=== PATIENT | female | born 1960 | race Caucasian/White ===

== ENCOUNTER → 2017-02-26 | Outpatient (CLI) | payer MEDICARE, OTHER ==
[~2017-02-26] MED LIST: ALBU8.5H3 INH; AZIT250T89 PO; FOLI200T PO; FURO40TA6 PO; GABA100C8 PO; MAGN400T7 PO; MYCO360T PO; POTA10TA90 PO; PRED1TAB PO; SIRO2TAB PO
== END | disposition home or self-care (01) ==
LOC: CFH 11:30
PROVIDERS: ATTEND Nurse Practitioner Family
DX: I82.621 Acute embolism and thrombosis of deep veins of right upper extremity (principal); I82.B11 Acute embolism and thrombosis of right subclavian vein; I82.A11 Acute embolism and thrombosis of right axillary vein; I12.9 Hypertensive chronic kidney disease with stage 1 through stage 4 chronic kidney disease, or unspecified chronic kidney disease; N18.4 Chronic kidney disease, stage 4 (severe); R25.1 Tremor, unspecified; G25.81 Restless legs syndrome; E83.39 Other disorders of phosphorus metabolism; N39.0 Urinary tract infection, site not specified; E55.9 Vitamin D deficiency, unspecified; E83.52 Hypercalcemia; R53.83 Other fatigue; Z94.0 Kidney transplant status

== ENCOUNTER → 2018-01-21 | Outpatient (CLI) | payer MEDICARE ==
[~2018-01-21] MED LIST changes: -ALBU8.5H3 INH; +ALBU8.5H8 INH; +GABA-826 PO; -GABA100C8 PO; +POTA10TA6 PO; -POTA10TA90 PO
== END | disposition home or self-care (01) ==
LOC: RAD 09:29
DX: M51.26 Other intervertebral disc displacement, lumbar region (principal); M48.07 Spinal stenosis, lumbosacral region; M47.816 Spondylosis without myelopathy or radiculopathy, lumbar region
CPT/HCPCS: 72148

== ENCOUNTER 2018-08-15 14:17 | Inpatient (IN) | payer MEDICARE ==
[~2018-08-15] VITALS: Ht 157.5 cm; Wt 72.0 kg
[~2018-08-15 14:17] MED LIST changes: +BACITRACIN 50,000 UNIT ONE; +BUPIVACAINE 0.25% ONE; +BUPIVACAINE/PF 0.5% ONE; +CEFAZOLIN 1,000 MG ONE; +DEXAMETHASONE 4 MG/ML, 1ML ONE; +EPINEPHRINE 1 MG/ML, 1ML ONE; +FENTANYL PF 250 MCG/5ML ONE; +MIDAZOLAM 1 MG/ML, 2ML ONE; +PROPOFOL 10 MG/ML, 20ML ONE
[2018-08-15] MEDS ORDERED: LACTATED RINGERS 1,000 ML IV SCH (14:49)
[2018-08-15 14:54] VITALS: BP 160/85
[2018-08-15] MEDS ORDERED: ACETAMINOPHEN 500 MG TABLET PO ONE (15:00)
[2018-08-15] MEDS ORDERED: ONDANSETRON ODT 8 MG PO ONE (15:00)
[2018-08-15] MEDS ORDERED: GABAPENTIN 300 MG CAPSULE PO ONE (15:00)
[2018-08-15] MEDS ORDERED: LOSA25TA6 PO (15:36)
[2018-08-15] MEDS ORDERED: CHOL500050 PO (15:36)
[2018-08-15] MEDS ORDERED: PROAIR (15:36)
[2018-08-15] MEDS ORDERED: BUDE10.2 INH (15:36)
[2018-08-15] MEDS ORDERED: TACR1CAP4 PO (15:36)
[2018-08-15] MEDS ORDERED: BUSP7.5T3 PO (15:36)
[2018-08-15] MEDS ORDERED: GABA300C10 PO (15:36)
[2018-08-15] MEDS ORDERED: RIVA20TA PO (15:36)
[2018-08-15] MEDS ORDERED: HYDR-3237 PO (15:38)
[2018-08-15] MEDS ORDERED: ROCURONIUM 10 MG/ML,10ML ONE (16:24)
[2018-08-15] MEDS ORDERED: SUCCINYLCHOLINE 20 MG/ML, 10ML ONE (16:24)
[2018-08-15] MEDS ORDERED: CEFAZOLIN 1,000 MG ONE (16:24)
[2018-08-15] MEDS ORDERED: ALBUTEROL/IPRATROPIUM 2.5MG/0.5MG, 3 ML NPPB PRN (16:30)
[2018-08-15] MEDS ORDERED: PROCHLORPERAZINE 5 MG/ML, 2ML IV PRN (16:30)
[2018-08-15] MEDS ORDERED: LABETALOL 5MG/ML, 20ML IV PRN (16:30)
[2018-08-15] MEDS ORDERED: HYDROmorphone 1 MG/ML, 1ML IV PRN (16:30)
[2018-08-15] MEDS ORDERED: MEPERIDINE/PF 25MG/0.5ML IVPush PRN (16:30)
[2018-08-15] MEDS ORDERED: METOPROLOL 1 MG/ML, 5ML IV PRN (16:30)
[2018-08-15] MEDS ORDERED: MIDAZOLAM 1 MG/ML, 2ML IV PRN (16:30)
[2018-08-15] MEDS ORDERED: LORazepam 2 MG/ML, 1ML IVPush PRN (16:30)
[2018-08-15] MEDS ORDERED: OXYcodone 5 MG/5 ML ORAL.SOL UDC PO PRN (16:30)
[2018-08-15] MEDS ORDERED: hydrALAzine 20 MG/ML, 1ML IV PRN (16:30)
[2018-08-15] MEDS ORDERED: FENTANYL PF 100 MCG/2ML IV PRN (16:30)
[2018-08-15] MEDS ORDERED: FENTANYL PF 100 MCG/2ML ONE (17:06)
[2018-08-15] MEDS ORDERED: BUPIVACAINE/PF-EPI 0.5% 1:200K INFIL ONE (17:15)
[2018-08-15] MEDS ORDERED: BUPIVACAINE LIPOSOME/PF 20ML INFIL ONE (17:17)
[2018-08-15] MEDS ORDERED: OXYcodone 5 MG/5 ML ORAL.SOL UDC ONE (18:41)
[2018-08-15] MEDS ORDERED: PROCHLORPERAZINE 5 MG/ML, 2ML ONE (18:55)
[2018-08-15] MEDS ORDERED: DIPHENHYDRAMINE 50 MG CAPSULE PO PRN (21:30)
[2018-08-15] MEDS ORDERED: OXYcodone/APAP 5/325MG TABLET PO PRN (21:30)
[2018-08-15] MEDS ORDERED: MAGNESIUM HYDROXIDE 8%, 30ML UDC PO PRN (21:30)
[2018-08-15] MEDS ORDERED: PHARMACY MAY ADJ FOR RENAL FX MC PRN (21:30)
[2018-08-15] MEDS ORDERED: PROMETHAZINE 25 MG/ML, 1ML IM PRN (21:30)
[2018-08-15] MEDS ORDERED: ALBUTEROL SULFATE 2.5 MG/3 ML NPPB PRN (21:30)
[2018-08-15] MEDS ORDERED: CYCLOBENZAPRINE 10 MG TABLET PO PRN (21:30)
[2018-08-15] MEDS ORDERED: morphine SULFATE 10 MG/ML, 1ML IV PRN (21:30)
[2018-08-15] MEDS ORDERED: FLUTICASONE/VILANTEROL 100-25MCG/INH INH PRN (21:30)
[2018-08-15] MEDS: D5%-0.9% NACL+KCL 20MEQ 1,000 ML IV SCH (21:30)
[2018-08-15] MEDS ORDERED: BISACODYL 10 MG SUPP PR PRN (21:30)
[2018-08-15] MEDS: TACROLIMUS 1 MG CAPSULE PO SCH (22:59)
[2018-08-15] MEDS: HYDROcodone/APAP 10/325 MG TABLET PO PRN (22:59)
[2018-08-15] MEDS: CEFAZOLIN PMX 1GM/50ML 50 ML IVPB SCH (22:59)
[2018-08-16 01:20] VITALS: BP 138/84
[2018-08-16] MEDS: CEFAZOLIN PMX 1GM/50ML 50 ML IVPB SCH ×3 (02:04→18:20)
[2018-08-16] MEDS: HYDROcodone/APAP 10/325 MG TABLET PO PRN ×3 (04:46→22:44)
[2018-08-16] MEDS: ENOXAPARIN 40 MG/0.4 ML SQ SCH (06:20)
[2018-08-16] MEDS: D5%-0.9% NACL+KCL 20MEQ 1,000 ML IV SCH ×2 (07:30→17:30)
[2018-08-16 07:55] VITALS: BP 170/80
[2018-08-16] MEDS: BUTALB/APAP/CAFFEINE 50MG/325MG/40MG PO PRN ×3 (08:00→16:09)
[2018-08-16] MEDS: LABETALOL 5MG/ML, 20ML IV PRN (08:06)
[2018-08-16] MEDS: FUROSEMIDE 40 MG TABLET PO SCH (09:00)
[2018-08-16] MEDS: BUSPIRONE 5 MG TABLET PO SCH (09:00)
[2018-08-16] MEDS: POTASSIUM CHLORIDE 20 MEQ TAB.ER.PRT PO SCH ×3 (09:28→22:44)
[2018-08-16] MEDS: GABAPENTIN 300 MG CAPSULE PO SCH ×3 (09:28→22:44)
[2018-08-16] MEDS: LOSARTAN 25MG TABLET PO SCH (09:29)
[2018-08-16] MEDS: TACROLIMUS 1 MG CAPSULE PO SCH ×2 (09:29→22:44)
[2018-08-16] MEDS: SENNA/DOCUSATE TABLET PO SCH (09:30)
[2018-08-16] MEDS ORDERED: ACETAMINOPHEN 325 MG TABLET ONE (10:55)
[2018-08-16] MEDS: ACETAMINOPHEN 325 MG TABLET PO PRN (10:57)
[2018-08-16 12:20] VITALS: BP 154/91
[2018-08-16 19:30] VITALS: BP 135/70
[2018-08-16] MEDS: ONDANSETRON 2MG/ML, 2ML IV PRN (20:16)
[2018-08-17 01:30] VITALS: BP 129/68
[2018-08-17] MEDS: CEFAZOLIN PMX 1GM/50ML 50 ML IVPB SCH ×3 (03:17→17:32)
[2018-08-17] MEDS: BUTALB/APAP/CAFFEINE 50MG/325MG/40MG PO PRN (03:27)
[2018-08-17] MEDS: D5%-0.9% NACL+KCL 20MEQ 1,000 ML IV SCH (05:39)
[2018-08-17] MEDS ORDERED: HYDROmorphone 2MG TABLET PO PRN (06:00)
[2018-08-17 07:48] VITALS: BP 128/75
[2018-08-17] MEDS: SENNA/DOCUSATE TABLET PO SCH (09:00)
[2018-08-17] MEDS: FUROSEMIDE 40 MG TABLET PO SCH (09:00)
[2018-08-17] MEDS: LOSARTAN 25MG TABLET PO SCH (09:00)
[2018-08-17] MEDS: POTASSIUM CHLORIDE 20 MEQ TAB.ER.PRT PO SCH ×2 (09:00→21:00)
[2018-08-17] MEDS: GABAPENTIN 300 MG CAPSULE PO SCH ×3 (09:00→21:00)
[2018-08-17] MEDS: BUSPIRONE 5 MG TABLET PO SCH (09:00)
[2018-08-17] MEDS: TACROLIMUS 1 MG CAPSULE PO SCH ×2 (09:30→21:03)
[2018-08-17 09:31] LABS: CREATININE 0.85 mg/dL (0.55-1.02)
[2018-08-17 13:10] LABS: BASOPHILS % (AUTO) 0 % (0-1); EOSINOPHILS % (AUTO) 0 % (1-7); LYMPHOCYTES # (AUTO) 0.73 x10^3/uL (1-3.4); LYMPHOCYTES % (AUTO) 5 % (22-44); MD NO; MEAN CORPUSCULAR HEMOGLOBIN 30.7 pg (27.0-34.8); MEAN CORPUSCULAR HGB CONC 33.4 g/dL (32.4-35.8); MEAN CORPUSCULAR VOLUME 92.1 fL (80-100); MEAN PLATELET VOLUME 8.4 fL (7.4-10.4); MONOCYTES # (AUTO) 1.33 x10^3/uL (0.2-0.8); MONOCYTES % (AUTO) 9 % (2-9); NEUTROPHILS # (AUTO) 13.39 x10^3/uL (1.8-6.8); NEUTROPHILS % (AUTO) 87 % (42-75); PLATELET COUNT 203 x10^3/uL (130-400); RED BLOOD COUNT 4.76 x10^6/uL (3.82-5.3); RED CELL DISTRIBUTION WIDTH 13.8 % (9.6-15.2)
[2018-08-17 13:19] LABS: INTERNATIONAL NORMALIZED RATIO 1.01 (0.93-1.1); PROTHROMBIN TIME 10.5 Seconds (9.6-11.5)
[2018-08-17 13:21] LABS: ALANINE AMINOTRANSFERASE 15 U/L (12-78); ALBUMIN 2.9 g/dL (3.4-5.0); ANION GAP 6 mmol/L (5-15); CALCIUM 8.5 mg/dL (8.5-10.1); CHLORIDE 109 mmol/L (98-107); CREATININE 0.95 mg/dL (0.55-1.02)
[2018-08-17 13:26] LABS: ALKALINE PHOSPHATASE 66 U/L (45-117); BILIRUBIN,TOTAL 0.7 mg/dL (0.2-1.0); TOTAL PROTEIN 6.6 g/dL (6.4-8.2)
[2018-08-17 13:38] LABS: TROPONIN I 0.104 ng/mL (0.000-0.045)
[2018-08-17 13:44] LABS: THYROID STIMULATING HORMONE 0.108 mIU/L (0.358-3.740)
[2018-08-17] MEDS ORDERED: MAGNESIUM SULFATE 4 GM in SODIUM CHLORIDE 0.9% 100 ML IV ONE (14:30)
[2018-08-17] MEDS: LABETALOL 5MG/ML, 20ML IV PRN (16:33)
[2018-08-17] MEDS: ENOXAPARIN 40 MG/0.4 ML SQ SCH (16:53)
[2018-08-17] MEDS: SODIUM CHLORIDE 0.9% 1,000 ML IV SCH (17:42)
[2018-08-17 18:29] LABS: TROPONIN I 0.133 ng/mL (0.000-0.045)
[2018-08-17] MEDS ORDERED: LABETALOL 5MG/ML, 20ML IV PRN (20:30)
[2018-08-17] MEDS: ACETAMINOPHEN 325 MG TABLET PO PRN (20:54)
[2018-08-18 00:45] LABS: BASOPHILS # (AUTO) 0.03 x10^3/uL (0-0.1); BASOPHILS % (AUTO) 0 % (0-1); EOSINOPHILS % (AUTO) 0 % (1-7); LYMPHOCYTES # (AUTO) 0.85 x10^3/uL (1-3.4); LYMPHOCYTES % (AUTO) 6 % (22-44); MD NO; MEAN CORPUSCULAR HEMOGLOBIN 30.9 pg (27.0-34.8); MEAN CORPUSCULAR HGB CONC 33.6 g/dL (32.4-35.8); MEAN CORPUSCULAR VOLUME 91.9 fL (80-100); MEAN PLATELET VOLUME 8.3 fL (7.4-10.4); MONOCYTES # (AUTO) 1.43 x10^3/uL (0.2-0.8); MONOCYTES % (AUTO) 10 % (2-9); NEUTROPHILS # (AUTO) 12.11 x10^3/uL (1.8-6.8); NEUTROPHILS % (AUTO) 84 % (42-75); PLATELET COUNT 194 x10^3/uL (130-400); RED BLOOD COUNT 4.34 x10^6/uL (3.82-5.3); RED CELL DISTRIBUTION WIDTH 13.4 % (9.6-15.2); TROPONIN I 0.155 ng/mL (0.000-0.045)
[2018-08-18] MEDS: HYDROcodone/APAP 10/325 MG TABLET PO PRN ×2 (00:48→12:13)
[2018-08-18 00:49] LABS: ALANINE AMINOTRANSFERASE 13 U/L (12-78); ALBUMIN 2.5 g/dL (3.4-5.0); ANION GAP 11 mmol/L (5-15); CHLORIDE 107 mmol/L (98-107); CREATININE 0.95 mg/dL (0.55-1.02)
[2018-08-18 00:52] LABS: ALKALINE PHOSPHATASE 63 U/L (45-117); BILIRUBIN,TOTAL 0.5 mg/dL (0.2-1.0); TOTAL PROTEIN 6.1 g/dL (6.4-8.2)
[2018-08-18] MEDS: CEFAZOLIN PMX 1GM/50ML 50 ML IVPB SCH ×3 (02:17→17:21)
[2018-08-18] MEDS: SODIUM CHLORIDE 0.9% 1,000 ML IV SCH (03:28)
[2018-08-18] MEDS: ONDANSETRON 2MG/ML, 2ML IV PRN (05:06)
[2018-08-18] MEDS ORDERED: POTASSIUM PHOSPHATE 44 MEQ in SODIUM CHLORIDE 0.9% 500 ML IV ONE (07:30)
[2018-08-18] MEDS: GABAPENTIN 300 MG CAPSULE PO SCH ×3 (08:28→21:41)
[2018-08-18] MEDS: BUSPIRONE 5 MG TABLET PO SCH (08:28)
[2018-08-18] MEDS: SENNA/DOCUSATE TABLET PO SCH (08:28)
[2018-08-18] MEDS: TACROLIMUS 1 MG CAPSULE PO SCH ×2 (08:29→21:41)
[2018-08-18] MEDS: FUROSEMIDE 40 MG TABLET PO SCH (08:29)
[2018-08-18] MEDS: LOSARTAN 25MG TABLET PO SCH (08:30)
[2018-08-18] MEDS: POTASSIUM CHLORIDE 20 MEQ TAB.ER.PRT PO SCH (08:30)
[2018-08-18] MEDS: RIVAROXABAN 20 MG TABLET PO SCH (12:13)
[2018-08-18 13:04] LABS: MICROSCOPIC INDICATED
[2018-08-18 13:06] LABS: CULTURE INDICATED? YES
[2018-08-18 14:40] VITALS: BP 129/83
[2018-08-18 18:59] VITALS: BP 169/108
[2018-08-18] MEDS ORDERED: ACETAMINOPHEN 500 MG TABLET PO ONE (19:30)
[2018-08-18 19:50] VITALS: BP 172/82
[2018-08-18] MEDS ORDERED: POTASSIUM CHLORIDE 20 MEQ TAB.ER.PRT PO SCH (21:00)
[2018-08-18] MEDS ORDERED: HYDROcodone/APAP 10/325 MG TABLET PO PRN ×2 (21:30)
[2018-08-18] MEDS ORDERED: HYDROcodone/APAP 5/325 TABLET ONE (21:34)
[2018-08-18] MEDS: HYDROcodone/APAP 5/325 TABLET PO PRN (21:41)
[2018-08-19] MEDS: CEFAZOLIN PMX 1GM/50ML 50 ML IVPB SCH ×2 (01:37→09:44)
[2018-08-19 02:13] VITALS: BP 133/83
[2018-08-19] MEDS: HYDROcodone/APAP 5/325 TABLET PO PRN ×3 (05:21→15:40)
[2018-08-19 05:28] LABS: BASOPHILS % (AUTO) 0 % (0-1); EOSINOPHILS # (AUTO) 0.01 x10^3/uL (0-0.4); EOSINOPHILS % (AUTO) 0 % (1-7); LYMPHOCYTES # (AUTO) 0.68 x10^3/uL (1-3.4); LYMPHOCYTES % (AUTO) 7 % (22-44); MD NO; MEAN CORPUSCULAR HEMOGLOBIN 30.4 pg (27.0-34.8); MEAN CORPUSCULAR HGB CONC 33.2 g/dL (32.4-35.8); MEAN CORPUSCULAR VOLUME 91.4 fL (80-100); MEAN PLATELET VOLUME 8.6 fL (7.4-10.4); MONOCYTES # (AUTO) 0.89 x10^3/uL (0.2-0.8); MONOCYTES % (AUTO) 10 % (2-9); NEUTROPHILS # (AUTO) 7.62 x10^3/uL (1.8-6.8); NEUTROPHILS % (AUTO) 83 % (42-75); PLATELET COUNT 181 x10^3/uL (130-400); RED BLOOD COUNT 3.93 x10^6/uL (3.82-5.3); RED CELL DISTRIBUTION WIDTH 13.6 % (9.6-15.2)
[2018-08-19 05:42] LABS: ANION GAP 9 mmol/L (5-15); CALCIUM 7.9 mg/dL (8.5-10.1); CHLORIDE 107 mmol/L (98-107); CREATININE 0.89 mg/dL (0.55-1.02)
[2018-08-19 06:53] VITALS: BP 123/74
[2018-08-19] MEDS: LOSARTAN 25MG TABLET PO SCH (09:00)
[2018-08-19] MEDS: BUSPIRONE 5 MG TABLET PO SCH (09:00)
[2018-08-19] MEDS: GABAPENTIN 300 MG CAPSULE PO SCH ×2 (09:44→15:40)
[2018-08-19] MEDS: SENNA/DOCUSATE TABLET PO SCH (09:44)
[2018-08-19] MEDS: TACROLIMUS 1 MG CAPSULE PO SCH (09:45)
[2018-08-19] MEDS ORDERED: MAGNESIUM CITRATE 300ML ORAL SOL PO ONE (10:00)
[2018-08-19] MEDS ORDERED: MAGNESIUM CITRATE 300ML ORAL SOL PO PRN (11:00)
[2018-08-19] MEDS: RIVAROXABAN 20 MG TABLET PO SCH (11:25)
[2018-08-19] MEDS ORDERED: NEUTRA PHOS K 250 MG TABLET PO SCH (13:00)
[2018-08-19 13:32] VITALS: BP 127/75
[2018-08-19] MEDS ORDERED: PINK LADY ENEMA 490 ML BOTTLE PR PRN (15:00)
== END 2018-08-19 17:09 | disposition home or self-care (01) | DRG 518 ==
LOC: OR 14:17 → 4NOR 20:00 → OR 21:57 → ICU 08-17 13:12 → 4NOR 08-18 14:34
PROVIDERS: ADMIT Neurological Surgery; ATTEND Neurological Surgery
PROC: 01NB0ZZ Release Lumbar Nerve, Open Approach (ICD-10-PCS; 2018-08-15)
PROC: 0SB20ZZ Excision of Lumbar Vertebral Disc, Open Approach (ICD-10-PCS; 2018-08-15)
PROC: 00U20KZ Supplement Dura Mater with Nonautologous Tissue Substitute, Open Approach (ICD-10-PCS; 2018-08-15)
PROC: 00NY0ZZ Release Lumbar Spinal Cord, Open Approach (ICD-10-PCS; principal; 2018-08-15 18:00)
PROC: 0T9B70Z Drainage of Bladder with Drainage Device, Via Natural or Artificial Opening (ICD-10-PCS; 2018-08-18)
DX: M51.16 Intervertebral disc disorders with radiculopathy, lumbar region (principal); G92 Toxic encephalopathy; Z94.0 Kidney transplant status; G96.11 Dural tear; M48.061 Spinal stenosis, lumbar region without neurogenic claudication; D72.829 Elevated white blood cell count, unspecified; M21.372 Foot drop, left foot; G62.9 Polyneuropathy, unspecified; E75.21 Fabry (-Anderson) disease; I10 Essential (primary) hypertension; I35.0 Nonrheumatic aortic (valve) stenosis; I70.0 Atherosclerosis of aorta; Z79.01 Long term (current) use of anticoagulants; Z82.49 Family history of ischemic heart disease and other diseases of the circulatory system; Z88.0 Allergy status to penicillin; Z88.2 Allergy status to sulfonamides; Z86.711 Personal history of pulmonary embolism; Z87.440 Personal history of urinary (tract) infections; T40.2X5A Adverse effect of other opioids, initial encounter
CPT/HCPCS: 36415; 36600; 70450; 70551; 71045; 72100; 80048; 80053; 81001; 82565; 82803; 82962; 83735; 84100; 84443; 84484; 85025; 85610; 87040; 87081; 87086; 93005; 93306; C9290; G0378; J0171; J0690; J1100; J1650; J2250; J2405; J2704; J3010; J3475; J3490; J7507; J7512; J7518; Q0162; C1781; J0330; J0780; J3480; J7030; J7040; J7120

== ENCOUNTER 2019-10-22 14:18 | Inpatient (IN) | payer MEDICARE ==
[~2019-10-22] VITALS: Ht 158.8 cm; Wt 69.8 kg
[~2019-10-22 14:18] MED LIST changes: -BACITRACIN 50,000 UNIT ONE; +BUDE10.2 INH; -BUPIVACAINE 0.25% ONE; -BUPIVACAINE/PF 0.5% ONE; +BUSP7.5T3 PO; -CEFAZOLIN 1,000 MG ONE; +CHOL500050 PO; -DEXAMETHASONE 4 MG/ML, 1ML ONE; -EPINEPHRINE 1 MG/ML, 1ML ONE; -FENTANYL PF 250 MCG/5ML ONE; +GABA300C10 PO; +HYDR-3237 PO; +LOSA25TA25 PO; -MAGN400T7 PO; +MAGN400T9 PO; -MIDAZOLAM 1 MG/ML, 2ML ONE; -PRED1TAB PO; +PRED1TAB19 PO; +PROAIR; -PROPOFOL 10 MG/ML, 20ML ONE; +RIVA20TA PO; +TACR1CAP4 PO
[2019-10-22 15:41] LABS: BASOPHILS % (AUTO) 0 % (0-1); EOSINOPHILS # (AUTO) 0.02 x10^3/uL (0-0.4); EOSINOPHILS % (AUTO) 0 % (1-7); LYMPHOCYTES % (AUTO) 9 % (22-44); MD NO; MEAN CORPUSCULAR HEMOGLOBIN 30.4 pg (27.0-34.8); MEAN CORPUSCULAR HGB CONC 31.8 g/dL (32.4-35.8); MEAN CORPUSCULAR VOLUME 95.6 fL (80-100); MEAN PLATELET VOLUME 8.5 fL (7.4-10.4); MONOCYTES # (AUTO) 0.44 x10^3/uL (0.2-0.8); MONOCYTES % (AUTO) 9 % (2-9); NEUTROPHILS # (AUTO) 3.87 x10^3/uL (1.8-6.8); NEUTROPHILS % (AUTO) 82 % (42-75); PLATELET COUNT 249 x10^3/uL (130-400); RED BLOOD COUNT 3.74 x10^6/uL (3.82-5.3); RED CELL DISTRIBUTION WIDTH 14.1 % (9.6-15.2)
[2019-10-22 15:43] LABS: ALBUMIN 3.1 g/dL (3.4-5.0); ANION GAP 6 mmol/L (5-15); CALCIUM 8.2 mg/dL (8.5-10.1); CHLORIDE 112 mmol/L (98-107); CREATININE 1.63 mg/dL (0.55-1.02)
--- NOTE | 2019-10-22 18:30 | NUR ---
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 PATIENT SENT FROM [facility]. PATIENTS RESPIRATIONS ARE EVEN AND UNLABORED. PATIENT IS IN NO ACUTE DISTRESS. VS STABLE. PATIENT IS RESTING ON GURNEY BEING EVALUATED BY ED PROVIDER. FAMILY AT BEDSIDE.
--- NOTE | 2019-10-22 18:56 | NUR ---
PATIENT AMBULATED TO THE BATHROOM WITH A STEADY GAIT. URINE COLLECTED.
[2019-10-22] MEDS ORDERED: FUROSEMIDE 40 MG/4 ML IV ONE (19:30)
[2019-10-22] MEDS ORDERED: METO25TA91 PO (19:33)
[2019-10-22] MEDS ORDERED: HYDR-3342 PO (19:33)
--- NOTE | 2019-10-22 19:33 | NUR ---
REPORT RECEIVED DOROTEO CHRISTIANSEN.
[2019-10-22] MEDS ORDERED: FUROSEMIDE 40 MG/4 ML ONE (19:36)
--- NOTE | 2019-10-22 19:43 | NUR ---
US COMPLETE. LASIX PER DEC. BEDSIDE COMMODE SET UP. NO COMPLAINTS AT THIS TIME. VSS, BP STABLE. CALL WILEY IN REACH.
[2019-10-22 19:49] LABS: MICROSCOPIC INDICATED
--- NOTE | 2019-10-22 20:10 | NUR ---
PLAN FOR NEPH CONSULT/ADMIT.
[2019-10-22 20:17] LABS: CULTURE INDICATED? NO
--- NOTE | 2019-10-22 21:03 | NUR ---
PER DR ZAMORA PT MAY TAKE HER HOME MEDS THAT SHE BROUGHT WITH HER. VSS. CALL INEZ IN REACH.
--- NOTE | 2019-10-22 21:15 | NUR ---
REPORT TO FLOYD CHRISTIANSEN.
[2019-10-22] MEDS ORDERED: POLYETHYLENE GLYCOL 17 GM PACKET PO PRN (21:30)
[2019-10-22] MEDS ORDERED: morphine SULFATE 10 MG/ML, 1ML IVPush PRN (21:30)
[2019-10-22] MEDS ORDERED: OXYcodone IR 5MG TABLET PO PRN (21:30)
[2019-10-22] MEDS ORDERED: BISACODYL 10 MG SUPP PR PRN (21:30)
[2019-10-22] MEDS ORDERED: ONDANSETRON 2MG/ML, 2ML IVPush PRN (21:30)
[2019-10-22] MEDS ORDERED: ONDANSETRON ODT 4 MG PO PRN (21:30)
[2019-10-22] MEDS ORDERED: DOCUSATE 100 MG CAPSULE PO PRN (21:30)
[2019-10-22] MEDS ORDERED: hydrALAzine 20 MG/ML, 1ML IVPush PRN (21:30)
[2019-10-22] MEDS ORDERED: ACETAMINOPHEN 325 MG TABLET PO PRN (21:30)
[2019-10-22] MEDS ORDERED: PROMETHAZINE 25 MG/ML, 1ML IM PRN (21:30)
[2019-10-22] MEDS ORDERED: TEMPLATE NON-FORMULARY MED. (Albuterol Sulfate (Proair Hfa) 2 PUFF(S)) INH PRN (21:30)
[2019-10-22] MEDS: GABAPENTIN 300 MG CAPSULE PO SCH (21:30)
[2019-10-22] MEDS: TACROLIMUS 1 MG CAPSULE PO SCH (21:30)
[2019-10-22] MEDS: mycophenOLATE SODIUM 360MG DR PO SCH (21:30)
[2019-10-22 21:38] VITALS: BP 159/101
[2019-10-22 21:40] LABS: TROPONIN I 0.093 ng/mL (0.000-0.045)
[2019-10-22] MEDS ORDERED: ALBUTEROL SULFATE 2.5 MG/3 ML HHN PRN (22:00)
[2019-10-22] MEDS ORDERED: ALBUTEROL SULFATE 2.5 MG/3 ML HHN SCH (22:00)
[2019-10-22 22:07] LABS: FREE T4 (FREE THYROXINE) 0.98 ng/dL (0.76-1.46)
[2019-10-23 02:10] VITALS: BP 121/75
[2019-10-23 06:22] LABS: BASOPHILS # (AUTO) 0.02 x10^3/uL (0-0.1); BASOPHILS % (AUTO) 1 % (0-1); EOSINOPHILS # (AUTO) 0.12 x10^3/uL (0-0.4); EOSINOPHILS % (AUTO) 3 % (1-7); LYMPHOCYTES # (AUTO) 0.69 x10^3/uL (1-3.4); LYMPHOCYTES % (AUTO) 16 % (22-44); MD NO; MEAN CORPUSCULAR HEMOGLOBIN 31.3 pg (27.0-34.8); MEAN CORPUSCULAR HGB CONC 33.2 g/dL (32.4-35.8); MEAN CORPUSCULAR VOLUME 94.3 fL (80-100); MEAN PLATELET VOLUME 8.2 fL (7.4-10.4); MONOCYTES # (AUTO) 0.76 x10^3/uL (0.2-0.8); MONOCYTES % (AUTO) 18 % (2-9); NEUTROPHILS # (AUTO) 2.72 x10^3/uL (1.8-6.8); NEUTROPHILS % (AUTO) 63 % (42-75); PLATELET COUNT 256 x10^3/uL (130-400); RED BLOOD COUNT 3.51 x10^6/uL (3.82-5.3); RED CELL DISTRIBUTION WIDTH 13.9 % (9.6-15.2)
[2019-10-23 06:33] LABS: ALANINE AMINOTRANSFERASE 16 U/L (12-78); ALBUMIN 2.8 g/dL (3.4-5.0); ANION GAP 4 mmol/L (5-15); CHLORIDE 114 mmol/L (98-107)
[2019-10-23 06:36] LABS: ALKALINE PHOSPHATASE 51 U/L (45-117); BILIRUBIN,TOTAL 0.4 mg/dL (0.2-1.0); CHOL/HDL RATIO 2.9; CHOLESTEROL, TOTAL 165 mg/dL (140-239); CREATININE 1.47 mg/dL (0.55-1.02); HDL CHOL % 34 % (28-40); HDL CHOLESTEROL (DIRECT) 56 mg/dL (40-60); LDL CHOLESTEROL,CALCULATED 76 mg/dL (54-169); LDL/HDL RATIO 1.4 (0.5-3.0); TOTAL PROTEIN 5.4 g/dL (6.4-8.2); TRIGLYCERIDES 166 mg/dL (50-200); VLDL CHOLESTEROL 33 mg/dL (0-25)
[2019-10-23] MEDS ORDERED: FUROSEMIDE 40 MG/4 ML IV SCH (07:30)
[2019-10-23 07:50] VITALS: BP 144/78
[2019-10-23 08:40] LABS: INTERNATIONAL NORMALIZED RATIO 0.97 (0.93-1.1); PROTHROMBIN TIME 10.2 Seconds (9.6-11.5)
[2019-10-23] MEDS: MAGNESIUM OXIDE 400 MG TABLET PO SCH ×2 (09:55→20:53)
[2019-10-23] MEDS: GABAPENTIN 300 MG CAPSULE PO SCH ×3 (09:55→20:53)
[2019-10-23] MEDS: mycophenOLATE SODIUM 360MG DR PO SCH ×2 (09:55→20:54)
[2019-10-23] MEDS: TACROLIMUS 1 MG CAPSULE PO SCH ×2 (09:55→20:53)
[2019-10-23] MEDS: METOPROLOL SUCCINATE 25 MG TAB.ER.24H PO SCH (09:55)
[2019-10-23] MEDS: BUSPIRONE 5 MG TABLET PO SCH (09:56)
[2019-10-23] MEDS ORDERED: FENTANYL PF 100 MCG/2ML ONE ×2 (11:16→11:17)
[2019-10-23] MEDS ORDERED: MIDAZOLAM 1 MG/ML, 5ML ONE ×2 (11:17)
[2019-10-23] MEDS ORDERED: FLUMAZENIL 0.1 MG/1 ML, 5ML ONE (11:17)
[2019-10-23] MEDS ORDERED: NALOXONE 1 MG/ML, 2ML ONE (11:17)
[2019-10-23 13:55] VITALS: BP 151/88
[2019-10-23 16:23] LABS: TROPONIN I 0.074 ng/mL (0.000-0.045)
[2019-10-23] MEDS ORDERED: FUROSEMIDE 40 MG TABLET PO SCH (17:00)
[2019-10-23 20:10] VITALS: BP 160/81
[2019-10-24 02:29] VITALS: BP 152/72
[2019-10-24 03:21] LABS: CREATININE,URINE RANDOM 39.7 mg/dL
[2019-10-24 04:48] LABS: BASOPHILS % (AUTO) 0 % (0-1); EOSINOPHILS # (AUTO) 0.06 x10^3/uL (0-0.4); EOSINOPHILS % (AUTO) 1 % (1-7); LYMPHOCYTES # (AUTO) 0.56 x10^3/uL (1-3.4); LYMPHOCYTES % (AUTO) 8 % (22-44); MD NO; MEAN CORPUSCULAR HEMOGLOBIN 30.8 pg (27.0-34.8); MEAN CORPUSCULAR HGB CONC 32.6 g/dL (32.4-35.8); MEAN CORPUSCULAR VOLUME 94.4 fL (80-100); MEAN PLATELET VOLUME 8.4 fL (7.4-10.4); MONOCYTES # (AUTO) 0.89 x10^3/uL (0.2-0.8); MONOCYTES % (AUTO) 13 % (2-9); NEUTROPHILS # (AUTO) 5.17 x10^3/uL (1.8-6.8); NEUTROPHILS % (AUTO) 77 % (42-75); PLATELET COUNT 254 x10^3/uL (130-400); RED BLOOD COUNT 3.74 x10^6/uL (3.82-5.3); RED CELL DISTRIBUTION WIDTH 13.9 % (9.6-15.2)
[2019-10-24 04:51] LABS: ALBUMIN 2.7 g/dL (3.4-5.0); ANION GAP 5 mmol/L (5-15); CALCIUM 7.7 mg/dL (8.5-10.1); CHLORIDE 114 mmol/L (98-107); CREATININE 1.61 mg/dL (0.55-1.02)
[2019-10-24 08:03] VITALS: BP 145/86
[2019-10-24] MEDS: mycophenOLATE SODIUM 360MG DR PO SCH ×2 (09:00→21:50)
[2019-10-24] MEDS: GABAPENTIN 300 MG CAPSULE PO SCH ×3 (09:34→21:50)
[2019-10-24] MEDS: TACROLIMUS 1 MG CAPSULE PO SCH ×2 (09:34→21:49)
[2019-10-24] MEDS: MAGNESIUM OXIDE 400 MG TABLET PO SCH ×2 (09:34→21:00)
[2019-10-24] MEDS: METOPROLOL SUCCINATE 25 MG TAB.ER.24H PO SCH (09:35)
[2019-10-24] MEDS: BUSPIRONE 5 MG TABLET PO SCH (09:35)
[2019-10-24 13:45] VITALS: BP 141/80
[2019-10-24] MEDS ORDERED: PRED5TAB PO ×2 (14:29)
[2019-10-24] MEDS ORDERED: TACR1CAP4 PO ×2 (14:29)
[2019-10-24] MEDS ORDERED: MYCO360T PO (14:31)
[2019-10-24 19:56] VITALS: BP 164/84
[2019-10-25 02:08] VITALS: BP 133/76
[2019-10-25 05:37] LABS: ANION GAP 9 mmol/L (5-15); CALCIUM 8.3 mg/dL (8.5-10.1); CHLORIDE 112 mmol/L (98-107); CREATININE 1.93 mg/dL (0.55-1.02)
[2019-10-25 07:07] VITALS: BP 170/95
[2019-10-25] MEDS ORDERED: FUROSEMIDE 40 MG TABLET PO SCH (09:00)
[2019-10-25] MEDS: mycophenOLATE SODIUM 360MG DR PO SCH (09:00)
[2019-10-25] MEDS: TACROLIMUS 1 MG CAPSULE PO SCH (09:07)
[2019-10-25] MEDS: MAGNESIUM OXIDE 400 MG TABLET PO SCH (09:08)
[2019-10-25] MEDS: BUSPIRONE 5 MG TABLET PO SCH (09:08)
[2019-10-25] MEDS: METOPROLOL SUCCINATE 25 MG TAB.ER.24H PO SCH (09:08)
[2019-10-25] MEDS: GABAPENTIN 300 MG CAPSULE PO SCH (09:09)
[2019-10-25 09:11] VITALS: BP 159/88
[2019-10-25] MEDS ORDERED: PRED20TA PO (11:38)
== END 2019-10-25 15:10 | disposition home or self-care (01) | DRG 698 ==
LOC: ED 19:13 → EDIP 20:27 → 3N 21:28
PROVIDERS: ADMIT Internal Medicine; ATTEND Internal Medicine
PROC: 0TB03ZX Excision of Right Kidney, Percutaneous Approach, Diagnostic (ICD-10-PCS; principal; 2019-10-23)
DX: T86.11 Kidney transplant rejection (principal); I50.33 Acute on chronic diastolic (congestive) heart failure; J98.11 Atelectasis; I13.0 Hypertensive heart and chronic kidney disease with heart failure and stage 1 through stage 4 chronic kidney disease, or unspecified chronic kidney disease; N17.9 Acute kidney failure, unspecified; T86.19 Other complication of kidney transplant; D64.9 Anemia, unspecified; E75.21 Fabry (-Anderson) disease; N18.3 Chronic kidney disease, stage 3 (moderate); J45.909 Unspecified asthma, uncomplicated; I35.0 Nonrheumatic aortic (valve) stenosis; Y83.0 Surgical operation with transplant of whole organ as the cause of abnormal reaction of the patient, or of later complication, without mention of misadventure at the time of the procedure; Z86.711 Personal history of pulmonary embolism; Z82.49 Family history of ischemic heart disease and other diseases of the circulatory system; Z86.718 Personal history of other venous thrombosis and embolism; Z88.0 Allergy status to penicillin; Z88.2 Allergy status to sulfonamides; Z88.5 Allergy status to narcotic agent; Z79.899 Other long term (current) drug therapy
CPT/HCPCS: 36415; 50200; 71045; 71250; 76770; 77012; 80048; 80053; 80061; 80069; 81001; 82040; 82570; 83036; 83735; 83880; 84156; 84439; 84443; 84484; 85025; 85610; 88300; 93005; 93306; 96374; 99156; 99157; 99285; G0378; J1940; J2250; J2930; J3010; J7507; J7512; J7518; J2310

== ENCOUNTER 2019-11-10 11:30 | Day surgery (SDC) | payer MEDICARE ==
[~2019-11-10] VITALS: Ht 157.5 cm; Wt 65.9 kg
[~2019-11-10 11:30] MED LIST changes: +HYDR-3342 PO; +METO25TA91 PO; +PRED20TA PO; +PRED5TAB PO
[2019-11-10] MEDS ORDERED: SODIUM CHLORIDE 0.9% 1,000 ML IV SCH ×2 (12:12→13:55)
[2019-11-10 12:14] VITALS: BP 167/104
[2019-11-10] MEDS ORDERED: GABA-827 PO (12:37)
[2019-11-10] MEDS ORDERED: PRED20TA PO (12:37)
[2019-11-10] MEDS ORDERED: GABA-826 PO (12:37)
[2019-11-10 12:53] LABS: MEAN CORPUSCULAR HEMOGLOBIN 30.8 pg (27.0-34.8); MEAN CORPUSCULAR HGB CONC 32.3 g/dL (32.4-35.8); MEAN CORPUSCULAR VOLUME 95.3 fL (80-100); MEAN PLATELET VOLUME 8.5 fL (7.4-10.4); PLATELET COUNT 210 x10^3/uL (130-400); RED BLOOD COUNT 3.63 x10^6/uL (3.82-5.3); RED CELL DISTRIBUTION WIDTH 14.3 % (9.6-15.2)
[2019-11-10 13:03] LABS: INTERNATIONAL NORMALIZED RATIO 0.97 (0.93-1.1); PROTHROMBIN TIME 10.3 Seconds (9.6-11.5)
[2019-11-10 13:06] LABS: ANION GAP 8 mmol/L (5-15); CALCIUM 8.6 mg/dL (8.5-10.1); CHLORIDE 113 mmol/L (98-107); CREATININE 1.85 mg/dL (0.55-1.02)
[2019-11-10 13:12] LABS: BASOPHILS % (AUTO) 0 % (0-1); EOSINOPHILS % (AUTO) 0 % (1-7); LYMPHOCYTES # (AUTO) 0.23 x10^3/uL (1-3.4); LYMPHOCYTES % (AUTO) 3 % (22-44); MD SCAN; MONOCYTES % (AUTO) 2 % (2-9); NEUTROPHILS # (AUTO) 6.54 x10^3/uL (1.8-6.8); NEUTROPHILS % (AUTO) 95 % (42-75)
[2019-11-10] MEDS ORDERED: FENTANYL PF 100 MCG/2ML ONE (13:14)
[2019-11-10] MEDS ORDERED: MIDAZOLAM 1 MG/ML, 5ML ONE (13:14)
[2019-11-10] MEDS ORDERED: VERAPAMIL 2.5 MG/ML, 2ML ONE (13:14)
[2019-11-10] MEDS ORDERED: BIVALIRUDIN 250 MG ONE (13:14)
[2019-11-10] MEDS ORDERED: HEPARIN 1,000 UNITS/ML, 10ML ONE (13:14)
[2019-11-10] MEDS ORDERED: TICAGRELOR 90 MG TABLET ONE (13:14)
== END 2019-11-10 15:55 | disposition home or self-care (01) ==
LOC: CACL 11:30
PROVIDERS: ATTEND Internal Medicine Cardiovascular Disease
DX: I35.0 Nonrheumatic aortic (valve) stenosis (principal); I25.10 Atherosclerotic heart disease of native coronary artery without angina pectoris; I10 Essential (primary) hypertension; Z88.1 Allergy status to other antibiotic agents; Z88.0 Allergy status to penicillin; Z88.8 Allergy status to other drugs, medicaments and biological substances; Z98.890 Other specified postprocedural states
CPT/HCPCS: 36415; 80048; 85025; 85610; 93454; 99156; C1769; C1894; J0583; J1644; J2250; J3010; Q9967

== ENCOUNTER → 2019-11-17 | Outpatient (CLI) | payer MEDICARE ==
[~2019-11-17] MED LIST changes: +GABA-827 PO
== END | disposition home or self-care (01) ==
LOC: CVU 11:19
PROVIDERS: ATTEND Internal Medicine Cardiovascular Disease
DX: I35.0 Nonrheumatic aortic (valve) stenosis (principal); I65.23 Occlusion and stenosis of bilateral carotid arteries; M47.816 Spondylosis without myelopathy or radiculopathy, lumbar region; M51.36 Other intervertebral disc degeneration, lumbar region; I25.10 Atherosclerotic heart disease of native coronary artery without angina pectoris; J90 Pleural effusion, not elsewhere classified; N17.9 Acute kidney failure, unspecified; D64.9 Anemia, unspecified; E75.21 Fabry (-Anderson) disease; I10 Essential (primary) hypertension; K57.30 Diverticulosis of large intestine without perforation or abscess without bleeding; Z98.890 Other specified postprocedural states
CPT/HCPCS: 71250; 74176; 93880; 94060; 94726; 94729

== ENCOUNTER 2019-11-27 23:24 | Inpatient (IN) | payer MEDICARE ==
[~2019-11-27] VITALS: Ht 158.8 cm; Wt 62.8 kg
[~2019-11-27 23:24] MED LIST changes: +ACET325T26 PO; +ALBU18HF INH; +CLOP75TA PO; +FURO20TA3 PO
--- NOTE | 2019-11-27 23:55 | NUR ---
Arrived to room via squad, vs obtained, ekg completed, provider @ bedside, pt A&Ox3, speech clear, skin pwd, lab @ bedside for blood draw, med rec completed
[2019-11-28 00:09] LABS: ALBUMIN 2.7 g/dL (3.4-5.0); ANION GAP 8 mmol/L (5-15); CALCIUM 8.1 mg/dL (8.5-10.1); CHLORIDE 111 mmol/L (98-107); CREATININE 1.86 mg/dL (0.55-1.02)
[2019-11-28 00:17] LABS: TROPONIN I 0.232 ng/mL (0.000-0.045)
--- NOTE | 2019-11-28 01:01 | NUR ---
oxygen sat 92% on room air, states "feels like something sitting on chest" pt placed on 2l O2 via nc, resting in bed with daughter, hob adjusted for comfort
[2019-11-28] MEDS ORDERED: NITROGLYCERIN SINGLE TAB 0.4 MG SL ONE (01:21)
[2019-11-28] MEDS: NITROGLYCERIN SINGLE TAB 0.4 MG SL PRN ×2 (01:23→01:36)
--- NOTE | 2019-11-28 01:37 | NUR ---
repeat b/p 171/98, pain level 4 after nitro, 2nd sl tab given
[2019-11-28] MEDS ORDERED: HYDROcodone/APAP 5/325 TABLET ONE (01:45)
--- NOTE | 2019-11-28 01:53 | NUR ---
b/p recheck 161/88 after 2nd nitro tab, currently rates pain 3/10, medicated with norco per orders for further pain relief, water given, pt tolerates well
[2019-11-28] MEDS ORDERED: HYDROcodone/APAP 5/325 TABLET PO ONE (02:00)
--- NOTE | 2019-11-28 02:01 | NUR ---
REPORT RECEIVED FROM KULDIP AVENDAÑO.
--- NOTE | 2019-11-28 02:02 | NUR ---
Report given to [place] CHRISTIANSEN
[2019-11-28] MEDS ORDERED: ENOXAPARIN 60 MG/0.6 ML SQ ONE ×2 (02:30)
[2019-11-28] MEDS ORDERED: morphine SULFATE 10 MG/ML, 1ML IVPush PRN (03:30)
[2019-11-28] MEDS ORDERED: ONDANSETRON ODT 4 MG PO PRN (03:30)
[2019-11-28] MEDS ORDERED: BISACODYL 10 MG SUPP PR PRN (03:30)
[2019-11-28] MEDS ORDERED: POLYETHYLENE GLYCOL 17 GM PACKET PO PRN (03:30)
[2019-11-28] MEDS ORDERED: HYDROcodone/APAP 5/325 TABLET PO PRN (03:30)
[2019-11-28] MEDS ORDERED: BUSPIRONE 5 MG TABLET PO PRN (03:30)
[2019-11-28] MEDS: GABAPENTIN 300 MG CAPSULE PO SCH ×4 (03:30→21:00)
[2019-11-28] MEDS ORDERED: DOCUSATE 100 MG CAPSULE PO PRN (03:30)
[2019-11-28] MEDS ORDERED: ACETAMINOPHEN 325 MG TABLET PO PRN (03:30)
[2019-11-28] MEDS ORDERED: PROMETHAZINE 25 MG/ML, 1ML IM PRN (03:30)
[2019-11-28] MEDS ORDERED: hydrALAzine 20 MG/ML, 1ML IVPush PRN (03:30)
[2019-11-28 03:56] LABS: FREE T4 (FREE THYROXINE) 1.12 ng/dL (0.76-1.46)
[2019-11-28 07:41] LABS: TROPONIN I 0.192 ng/mL (0.000-0.045)
[2019-11-28 08:00] VITALS: BP 178/111
[2019-11-28] MEDS: CLOPIDOGREL 75 MG TABLET PO SCH (08:47)
[2019-11-28] MEDS: MAGNESIUM OXIDE 400 MG TABLET PO SCH (08:50)
[2019-11-28] MEDS: MULTIVITAMIN 1 TABLET PO SCH (08:51)
[2019-11-28] MEDS: METOPROLOL SUCCINATE 25 MG TAB.ER.24H PO SCH (08:51)
[2019-11-28] MEDS ORDERED: LOSARTAN 25MG TABLET PO SCH (09:00)
[2019-11-28] MEDS ORDERED: FUROSEMIDE 40 MG TABLET PO SCH (09:00)
[2019-11-28] MEDS: TACROLIMUS 1 MG CAPSULE PO SCH ×2 (11:08→21:39)
[2019-11-28] MEDS: mycophenOLATE SODIUM 360MG DR PO SCH ×2 (11:08→21:40)
[2019-11-28] MEDS: SODIUM CHLORIDE 0.9% 1,000 ML IV SCH (11:42)
[2019-11-28] MEDS: TEMPLATE NON-FORMULARY MED. (Albuterol Sulfate (Ventolin Hfa) 2 PUFFS) INH SCH (11:43)
[2019-11-28 12:05] LABS: % IRON SATURATION 21 % (20-55); IRON LEVEL 43 mcg/dL (50-170); TOTAL IRON BINDING CAPACITY 205 mcg/dL (250-450); TROPONIN I 0.183 ng/mL (0.000-0.045)
[2019-11-28 12:25] LABS: ABSOLUTE RETICS # 0.059 x10^6/uL (0.5-2.5); RED BLOOD COUNT 3.69 x10^6/uL (3.82-5.3); RETICULOCYTE COUNT % 1.59 % (0.5-1.5)
[2019-11-28 12:28] LABS: CALCIUM 8.1 mg/dL (8.5-10.1)
[2019-11-28] MEDS ORDERED: HEPARIN 5,000 UNITS/ML, 1ML IV PRN (13:00)
[2019-11-28] MEDS ORDERED: HEPARIN 5,000 UNITS/ML, 1ML SQ SCH (13:00)
[2019-11-28] MEDS ORDERED: HEPARIN 25,000 UNITS/250ML PMX 250 ML IV PRN (13:00)
[2019-11-28] MEDS ORDERED: HEPARIN 5,000 UNITS/ML, 1ML IV ONE (13:00)
[2019-11-28] MEDS: PANTOPRAZOLE 40 MG IV IVPush SCH (14:53)
[2019-11-28 15:25] VITALS: BP 194/80
[2019-11-28] MEDS: INSULIN LISPRO 100 UNITS/ML, PEN SQ-INSULIN SCH ×2 (16:00→21:00)
[2019-11-28 21:34] VITALS: BP 178/106
[2019-11-28] MEDS: GABAPENTIN 400 MG CAPSULE PO SCH (21:40)
[2019-11-29] MEDS: PANTOPRAZOLE 40 MG IV IVPush SCH (01:13)
[2019-11-29 02:41] VITALS: BP 153/86
[2019-11-29 03:29] LABS: BASOPHILS % (AUTO) 0 % (0-1); EOSINOPHILS # (AUTO) 0.06 x10^3/uL (0-0.4); EOSINOPHILS % (AUTO) 1 % (1-7); LYMPHOCYTES # (AUTO) 0.22 x10^3/uL (1-3.4); LYMPHOCYTES % (AUTO) 3 % (22-44); MD NO; MEAN CORPUSCULAR HEMOGLOBIN 31.7 pg (27.0-34.8); MEAN CORPUSCULAR HGB CONC 33.5 g/dL (32.4-35.8); MEAN CORPUSCULAR VOLUME 94.7 fL (80-100); MEAN PLATELET VOLUME 8.8 fL (7.4-10.4); MONOCYTES # (AUTO) 0.36 x10^3/uL (0.2-0.8); MONOCYTES % (AUTO) 5 % (2-9); NEUTROPHILS # (AUTO) 6.37 x10^3/uL (1.8-6.8); NEUTROPHILS % (AUTO) 91 % (42-75); PLATELET COUNT 119 x10^3/uL (130-400); RED BLOOD COUNT 3.52 x10^6/uL (3.82-5.3); RED CELL DISTRIBUTION WIDTH 15.1 % (9.6-15.2)
[2019-11-29 03:38] LABS: ALANINE AMINOTRANSFERASE 37 U/L (12-78); ALBUMIN 2.7 g/dL (3.4-5.0); ANION GAP 9 mmol/L (5-15); CALCIUM 8.1 mg/dL (8.5-10.1); CHLORIDE 109 mmol/L (98-107); CREATININE 2.12 mg/dL (0.55-1.02)
[2019-11-29 03:41] LABS: ALKALINE PHOSPHATASE 79 U/L (45-117); BILIRUBIN,TOTAL 0.4 mg/dL (0.2-1.0); CHOLESTEROL, TOTAL 195 mg/dL (140-239); HDL CHOL % 50 % (28-40); HDL CHOLESTEROL (DIRECT) 97 mg/dL (40-60); LDL CHOLESTEROL,CALCULATED 52 mg/dL (54-169); LDL/HDL RATIO 0.5 (0.5-3.0); TOTAL PROTEIN 5.5 g/dL (6.4-8.2); TRIGLYCERIDES 232 mg/dL (50-200); VLDL CHOLESTEROL 46 mg/dL (0-25)
[2019-11-29 07:59] VITALS: BP 161/93
[2019-11-29] MEDS: TEMPLATE NON-FORMULARY MED. (Albuterol Sulfate (Ventolin Hfa) 2 PUFFS) INH SCH (09:00)
[2019-11-29] MEDS: INSULIN LISPRO 100 UNITS/ML, PEN SQ-INSULIN SCH ×4 (09:06→22:34)
[2019-11-29] MEDS: mycophenOLATE SODIUM 360MG DR PO SCH ×2 (09:07→22:32)
[2019-11-29] MEDS: TACROLIMUS 1 MG CAPSULE PO SCH ×2 (09:08→22:30)
[2019-11-29] MEDS: GABAPENTIN 300 MG CAPSULE PO SCH ×3 (09:09→21:00)
[2019-11-29] MEDS: CLOPIDOGREL 75 MG TABLET PO SCH (09:09)
[2019-11-29] MEDS: METOPROLOL SUCCINATE 25 MG TAB.ER.24H PO SCH (09:10)
[2019-11-29] MEDS: SODIUM CHLORIDE 0.9% 1,000 ML IV SCH (09:20)
[2019-11-29] MEDS: MAGNESIUM OXIDE 400 MG TABLET PO SCH (11:14)
[2019-11-29] MEDS: MULTIVITAMIN 1 TABLET PO SCH (11:16)
[2019-11-29] MEDS: ACETAMINOPHEN 325 MG TABLET PO PRN ×2 (11:17→22:31)
[2019-11-29] MEDS ORDERED: FLUCONAZOLE 200 MG TABLET PO ONE (12:00)
[2019-11-29 13:06] LABS: MICROSCOPIC INDICATED
[2019-11-29] MEDS: NYSTATIN 500,000 UNITS/5 ML UDC PO SCH ×3 (13:30→22:30)
[2019-11-29] MEDS: APIXABAN 5 MG TABLET PO SCH ×2 (13:31→22:32)
[2019-11-29 13:44] VITALS: BP 182/94
[2019-11-29 15:13] VITALS: BP 185/96
[2019-11-29] MEDS ORDERED: LABETALOL 5MG/ML, 20ML IVPush ONE (15:30)
[2019-11-29 15:50] LABS: CHLORIDE,URINE RANDOM 29 mmol/L; POTASSIUM,URINE RANDOM 40 mmol/L; SODIUM,URINE RANDOM 30 mmol/L
[2019-11-29] MEDS ORDERED: LABETALOL 5 MG/ML SYR. (IV ONLY) IVPush ONE (16:00)
[2019-11-29 16:06] LABS: TOTAL PROTEIN,URINE RANDOM > 2500 mg/dL (0-12)
[2019-11-29 17:57] VITALS: BP 170/101
[2019-11-29] MEDS: PANTOPROZOLE 40MG TABLET PO SCH (22:31)
[2019-11-29] MEDS: GABAPENTIN 400 MG CAPSULE PO SCH (22:31)
[2019-11-29] MEDS: AMLODIPINE 5 MG TABLET PO SCH (22:32)
[2019-11-30 04:58] VITALS: BP 171/100
[2019-11-30] MEDS: NYSTATIN 500,000 UNITS/5 ML UDC PO SCH ×4 (06:45→21:07)
[2019-11-30 07:09] VITALS: BP 166/99
[2019-11-30 07:22] LABS: BASOPHILS % (AUTO) 0 % (0-1); EOSINOPHILS % (AUTO) 0 % (1-7); LYMPHOCYTES # (AUTO) 0.33 x10^3/uL (1-3.4); LYMPHOCYTES % (AUTO) 5 % (22-44); MD NO; MEAN CORPUSCULAR HEMOGLOBIN 31.4 pg (27.0-34.8); MEAN CORPUSCULAR HGB CONC 32.8 g/dL (32.4-35.8); MEAN CORPUSCULAR VOLUME 95.7 fL (80-100); MEAN PLATELET VOLUME 8.4 fL (7.4-10.4); MONOCYTES # (AUTO) 0.53 x10^3/uL (0.2-0.8); MONOCYTES % (AUTO) 8 % (2-9); NEUTROPHILS # (AUTO) 6.03 x10^3/uL (1.8-6.8); NEUTROPHILS % (AUTO) 87 % (42-75); PLATELET COUNT 122 x10^3/uL (130-400); RED BLOOD COUNT 3.55 x10^6/uL (3.82-5.3); RED CELL DISTRIBUTION WIDTH 15.5 % (9.6-15.2)
[2019-11-30 07:25] LABS: ANION GAP 7 mmol/L (5-15); CALCIUM 7.9 mg/dL (8.5-10.1); CHLORIDE 110 mmol/L (98-107); CREATININE 2.24 mg/dL (0.55-1.02)
[2019-11-30] MEDS ORDERED: LABETALOL 100 MG TABLET PO SCH (08:00)
[2019-11-30] MEDS: INSULIN LISPRO 100 UNITS/ML, PEN SQ-INSULIN SCH ×4 (08:38→21:44)
[2019-11-30] MEDS: AMLODIPINE 5 MG TABLET PO SCH ×2 (09:00→21:07)
[2019-11-30] MEDS: TEMPLATE NON-FORMULARY MED. (Albuterol Sulfate (Ventolin Hfa) 2 PUFFS) INH SCH (09:00)
[2019-11-30] MEDS ORDERED: SODIUM CHLORIDE 0.9% 1,000 ML IV SCH (09:30)
[2019-11-30] MEDS: APIXABAN 5 MG TABLET PO SCH ×2 (09:51→21:06)
[2019-11-30] MEDS: TACROLIMUS 1 MG CAPSULE PO SCH ×2 (09:51→21:07)
[2019-11-30] MEDS: CLOPIDOGREL 75 MG TABLET PO SCH (09:52)
[2019-11-30] MEDS: GABAPENTIN 300 MG CAPSULE PO SCH (09:52)
[2019-11-30] MEDS: PANTOPROZOLE 40MG TABLET PO SCH ×2 (09:52→21:07)
[2019-11-30] MEDS: mycophenOLATE SODIUM 360MG DR PO SCH ×2 (09:53→21:08)
[2019-11-30] MEDS: MULTIVITAMIN 1 TABLET PO SCH (10:00)
[2019-11-30] MEDS: MAGNESIUM OXIDE 400 MG TABLET PO SCH (10:00)
[2019-11-30] MEDS ORDERED: FUROSEMIDE 40 MG/4 ML IV ONE (11:00)
[2019-11-30 12:27] VITALS: BP 157/80
[2019-11-30] MEDS: ERGOCALCIFEROL 50,000 UNIT CAPSULE PO SCH (12:29)
[2019-11-30 13:06] VITALS: BP 177/91
[2019-11-30] MEDS: GABAPENTIN 100 MG CAPSULE PO SCH ×2 (15:33→21:08)
[2019-11-30] MEDS: LABETALOL 100 MG TABLET PO SCH ×2 (15:34→21:06)
[2019-11-30 17:24] VITALS: BP 145/74
[2019-11-30 19:03] VITALS: BP 167/88
[2019-11-30] MEDS: GABAPENTIN 400 MG CAPSULE PO SCH (21:07)
[2019-11-30] MEDS ORDERED: BUSPIRONE 7.5 MG HOMEMEDPO PRN (23:00)
[2019-11-30] MEDS ORDERED: BUSPIRONE 7.5 MG PO PRN (23:00)
[2019-12-01 05:25] VITALS: BP 144/83
[2019-12-01] MEDS: NYSTATIN 500,000 UNITS/5 ML UDC PO SCH ×4 (05:29→22:05)
[2019-12-01 06:37] LABS: ANION GAP 10 mmol/L (5-15); CALCIUM 7.9 mg/dL (8.5-10.1); CHLORIDE 110 mmol/L (98-107)
[2019-12-01 06:38] LABS: CREATININE 2.54 mg/dL (0.55-1.02)
[2019-12-01 08:15] VITALS: BP 150/85
[2019-12-01] MEDS: mycophenOLATE SODIUM 360MG DR PO SCH ×2 (09:00→20:33)
[2019-12-01] MEDS: MAGNESIUM OXIDE 400 MG TABLET PO SCH (09:00)
[2019-12-01] MEDS: INSULIN LISPRO 100 UNITS/ML, PEN SQ-INSULIN SCH ×4 (09:00→20:47)
[2019-12-01] MEDS: CLOPIDOGREL 75 MG TABLET PO SCH (09:00)
[2019-12-01] MEDS: GABAPENTIN 100 MG CAPSULE PO SCH ×3 (09:00→20:31)
[2019-12-01] MEDS: AMLODIPINE 5 MG TABLET PO SCH ×2 (09:00→20:32)
[2019-12-01] MEDS: PANTOPROZOLE 40MG TABLET PO SCH ×2 (09:00→20:32)
[2019-12-01] MEDS: TEMPLATE NON-FORMULARY MED. (Albuterol Sulfate (Ventolin Hfa) 2 PUFFS) INH SCH (09:00)
[2019-12-01] MEDS: LABETALOL 100 MG TABLET PO SCH ×3 (09:00→20:31)
[2019-12-01] MEDS: APIXABAN 5 MG TABLET PO SCH ×2 (09:00→20:32)
[2019-12-01] MEDS: MULTIVITAMIN 1 TABLET PO SCH (09:01)
[2019-12-01] MEDS: ACETAMINOPHEN 325 MG TABLET PO PRN (10:11)
[2019-12-01] MEDS: TACROLIMUS 1 MG CAPSULE PO SCH ×2 (12:16→20:32)
[2019-12-01 13:22] VITALS: BP 128/78
[2019-12-01 19:56] VITALS: BP 151/82
[2019-12-01] MEDS: GABAPENTIN 400 MG CAPSULE PO SCH (20:32)
[2019-12-01] MEDS: HYDROcodone/APAP 5/325 TABLET PO PRN (20:38)
[2019-12-02 02:41] VITALS: BP 134/70
[2019-12-02] MEDS: NYSTATIN 500,000 UNITS/5 ML UDC PO SCH ×4 (06:07→21:13)
[2019-12-02 07:28] VITALS: BP 144/83
[2019-12-02] MEDS: INSULIN LISPRO 100 UNITS/ML, PEN SQ-INSULIN SCH ×4 (08:52→21:05)
[2019-12-02] MEDS: CLOPIDOGREL 75 MG TABLET PO SCH (08:54)
[2019-12-02] MEDS: TACROLIMUS 1 MG CAPSULE PO SCH ×2 (08:54→21:04)
[2019-12-02] MEDS: APIXABAN 5 MG TABLET PO SCH ×2 (08:54→21:01)
[2019-12-02] MEDS: GABAPENTIN 100 MG CAPSULE PO SCH ×3 (08:55→21:01)
[2019-12-02] MEDS: PANTOPROZOLE 40MG TABLET PO SCH ×2 (08:55→21:02)
[2019-12-02] MEDS: mycophenOLATE SODIUM 360MG DR PO SCH ×2 (08:55→21:02)
[2019-12-02] MEDS: LABETALOL 100 MG TABLET PO SCH ×3 (08:55→21:01)
[2019-12-02] MEDS ORDERED: INSULIN GLARGINE 100 UNITS/ML, PEN SQ-INSULIN SCH (09:00)
[2019-12-02] MEDS: TEMPLATE NON-FORMULARY MED. (Albuterol Sulfate (Ventolin Hfa) 2 PUFFS) INH SCH (09:00)
[2019-12-02 09:02] LABS: ANION GAP 10 mmol/L (5-15); CALCIUM 7.9 mg/dL (8.5-10.1); CHLORIDE 110 mmol/L (98-107)
[2019-12-02] MEDS: MAGNESIUM OXIDE 400 MG TABLET PO SCH (11:26)
[2019-12-02] MEDS: MULTIVITAMIN 1 TABLET PO SCH (11:26)
[2019-12-02 11:29] VITALS: BP 148/73
[2019-12-02 14:15] VITALS: BP 142/80
[2019-12-02] MEDS ORDERED: TACROLIMUS 1 MG CAPSULE PO SCH (15:30)
[2019-12-02 16:22] VITALS: BP 130/77
[2019-12-02 20:11] VITALS: BP 145/80
[2019-12-02] MEDS: GABAPENTIN 400 MG CAPSULE PO SCH (21:01)
[2019-12-02] MEDS: INSULIN GLARGINE 100 UNITS/ML, PEN SQ-INSULIN SCH (21:06)
[2019-12-02] MEDS: HYDROcodone/APAP 5/325 TABLET PO PRN (21:07)
[2019-12-03 02:09] VITALS: BP 144/72
[2019-12-03] MEDS: NYSTATIN 500,000 UNITS/5 ML UDC PO SCH ×4 (06:07→21:35)
[2019-12-03 07:07] VITALS: BP 126/73
[2019-12-03] MEDS: CLOPIDOGREL 75 MG TABLET PO SCH (08:28)
[2019-12-03] MEDS: LABETALOL 100 MG TABLET PO SCH ×3 (08:29→21:35)
[2019-12-03] MEDS: APIXABAN 5 MG TABLET PO SCH ×2 (08:30→21:34)
[2019-12-03] MEDS: PANTOPROZOLE 40MG TABLET PO SCH ×2 (08:31→21:35)
[2019-12-03] MEDS: mycophenOLATE SODIUM 360MG DR PO SCH ×2 (08:32→21:00)
[2019-12-03] MEDS: GABAPENTIN 100 MG CAPSULE PO SCH ×3 (08:32→21:00)
[2019-12-03] MEDS: INSULIN LISPRO 100 UNITS/ML, PEN SQ-INSULIN SCH ×4 (08:34→21:38)
[2019-12-03] MEDS: INSULIN GLARGINE 100 UNITS/ML, PEN SQ-INSULIN SCH ×2 (08:34→21:37)
[2019-12-03] MEDS: TEMPLATE NON-FORMULARY MED. (Albuterol Sulfate (Ventolin Hfa) 2 PUFFS) INH SCH (09:00)
[2019-12-03] MEDS: ACETAMINOPHEN 325 MG TABLET PO PRN (10:05)
[2019-12-03 10:40] LABS: ANION GAP 8 mmol/L (5-15); CALCIUM 7.9 mg/dL (8.5-10.1); CHLORIDE 110 mmol/L (98-107); CREATININE 3.33 mg/dL (0.55-1.02)
[2019-12-03] MEDS: TACROLIMUS 1 MG CAPSULE PO SCH ×2 (11:57→23:08)
[2019-12-03] MEDS: MAGNESIUM OXIDE 400 MG TABLET PO SCH (11:57)
[2019-12-03] MEDS: MULTIVITAMIN 1 TABLET PO SCH (11:58)
[2019-12-03] MEDS ORDERED: LACTATED RINGERS 500 ML IVBOLUS ONE (12:00)
[2019-12-03 14:16] VITALS: BP 144/77
[2019-12-03 17:33] VITALS: BP 138/84
[2019-12-03 19:02] VITALS: BP 114/71
[2019-12-03] MEDS: GABAPENTIN 400 MG CAPSULE PO SCH (21:35)
[2019-12-03] MEDS: HYDROcodone/APAP 5/325 TABLET PO PRN (21:36)
[2019-12-04] VITALS (8 sets, daily range): BP systolic 135–162; BP diastolic 73–93
[2019-12-04] MEDS: NYSTATIN 500,000 UNITS/5 ML UDC PO SCH ×4 (05:48→21:06)
[2019-12-04] MEDS: INSULIN LISPRO 100 UNITS/ML, PEN SQ-INSULIN SCH ×4 (07:00→21:09)
[2019-12-04] MEDS: LABETALOL 100 MG TABLET PO SCH ×3 (08:03→21:07)
[2019-12-04] MEDS: PANTOPROZOLE 40MG TABLET PO SCH ×2 (08:04→21:06)
[2019-12-04] MEDS: mycophenOLATE SODIUM 360MG DR PO SCH ×2 (08:04→21:00)
[2019-12-04 08:05] LABS: ANION GAP 10 mmol/L (5-15); CALCIUM 8.2 mg/dL (8.5-10.1); CHLORIDE 111 mmol/L (98-107); CREATININE 3.49 mg/dL (0.55-1.02)
[2019-12-04] MEDS: GABAPENTIN 100 MG CAPSULE PO SCH ×3 (08:05→21:00)
[2019-12-04] MEDS: CLOPIDOGREL 75 MG TABLET PO SCH (08:05)
[2019-12-04] MEDS: MAGNESIUM OXIDE 400 MG TABLET PO SCH (08:06)
[2019-12-04] MEDS: MULTIVITAMIN 1 TABLET PO SCH (08:06)
[2019-12-04] MEDS: APIXABAN 5 MG TABLET PO SCH ×2 (08:06→21:06)
[2019-12-04] MEDS: TEMPLATE NON-FORMULARY MED. (Albuterol Sulfate (Ventolin Hfa) 2 PUFFS) INH SCH (08:27)
[2019-12-04] MEDS: INSULIN GLARGINE 100 UNITS/ML, PEN SQ-INSULIN SCH ×2 (08:28→21:08)
[2019-12-04] MEDS: GABAPENTIN 400 MG CAPSULE PO SCH (21:06)
[2019-12-04] MEDS: HYDROcodone/APAP 5/325 TABLET PO PRN (21:08)
[2019-12-05 00:58] VITALS: BP 130/78
[2019-12-05 04:57] LABS: BASOPHILS % (AUTO) 0 % (0-1); EOSINOPHILS % (AUTO) 0 % (1-7); LYMPHOCYTES % (AUTO) 4 % (22-44); MD NO; MEAN CORPUSCULAR HEMOGLOBIN 31.2 pg (27.0-34.8); MEAN CORPUSCULAR HGB CONC 32.5 g/dL (32.4-35.8); MEAN CORPUSCULAR VOLUME 95.9 fL (80-100); MEAN PLATELET VOLUME 8.9 fL (7.4-10.4); MONOCYTES # (AUTO) 0.33 x10^3/uL (0.2-0.8); MONOCYTES % (AUTO) 6 % (2-9); NEUTROPHILS # (AUTO) 5.09 x10^3/uL (1.8-6.8); NEUTROPHILS % (AUTO) 90 % (42-75); PLATELET COUNT 135 x10^3/uL (130-400); RED BLOOD COUNT 3.23 x10^6/uL (3.82-5.3); RED CELL DISTRIBUTION WIDTH 15.5 % (9.6-15.2)
[2019-12-05 05:11] LABS: ALBUMIN 2.7 g/dL (3.4-5.0); ANION GAP 10 mmol/L (5-15); CALCIUM 7.9 mg/dL (8.5-10.1); CHLORIDE 112 mmol/L (98-107)
[2019-12-05 05:12] LABS: CREATININE 3.39 mg/dL (0.55-1.02)
[2019-12-05] MEDS: NYSTATIN 500,000 UNITS/5 ML UDC PO SCH ×4 (05:40→21:13)
[2019-12-05] MEDS: INSULIN LISPRO 100 UNITS/ML, PEN SQ-INSULIN SCH ×4 (07:00→22:20)
[2019-12-05 07:22] VITALS: BP 124/72
[2019-12-05] MEDS: mycophenOLATE SODIUM 360MG DR PO SCH ×2 (09:00→21:00)
[2019-12-05] MEDS: TEMPLATE NON-FORMULARY MED. (Albuterol Sulfate (Ventolin Hfa) 2 PUFFS) INH SCH (09:00)
[2019-12-05] MEDS: INSULIN GLARGINE 100 UNITS/ML, PEN SQ-INSULIN SCH ×2 (09:00→22:21)
[2019-12-05 09:08] VITALS: BP 131/65
[2019-12-05] MEDS: MAGNESIUM OXIDE 400 MG TABLET PO SCH (09:10)
[2019-12-05] MEDS: MULTIVITAMIN 1 TABLET PO SCH (09:13)
[2019-12-05] MEDS: GABAPENTIN 100 MG CAPSULE PO SCH ×3 (09:13→21:00)
[2019-12-05] MEDS: APIXABAN 5 MG TABLET PO SCH ×2 (09:13→21:15)
[2019-12-05] MEDS: PANTOPROZOLE 40MG TABLET PO SCH ×2 (09:13→21:16)
[2019-12-05] MEDS: LABETALOL 100 MG TABLET PO SCH ×3 (09:14→21:14)
[2019-12-05] MEDS: CLOPIDOGREL 75 MG TABLET PO SCH (09:14)
[2019-12-05 11:24] VITALS: BP 147/84
[2019-12-05 13:45] VITALS: BP 145/89
[2019-12-05 20:00] VITALS: BP 168/95
[2019-12-05] MEDS: GABAPENTIN 400 MG CAPSULE PO SCH (21:14)
[2019-12-05] MEDS: HYDROcodone/APAP 5/325 TABLET PO PRN (21:16)
[2019-12-06 01:43] VITALS: BP 136/78
[2019-12-06] MEDS: NYSTATIN 500,000 UNITS/5 ML UDC PO SCH ×4 (05:55→20:33)
[2019-12-06 06:31] LABS: ALBUMIN 2.5 g/dL (3.4-5.0); ANION GAP 8 mmol/L (5-15); BASOPHILS % (AUTO) 0 % (0-1); CALCIUM 7.7 mg/dL (8.5-10.1); CHLORIDE 107 mmol/L (98-107); CREATININE 2.48 mg/dL (0.55-1.02); EOSINOPHILS % (AUTO) 0 % (1-7); LYMPHOCYTES # (AUTO) 0.23 x10^3/uL (1-3.4); LYMPHOCYTES % (AUTO) 5 % (22-44); MD NO; MEAN CORPUSCULAR HEMOGLOBIN 30.9 pg (27.0-34.8); MEAN CORPUSCULAR HGB CONC 32.9 g/dL (32.4-35.8); MEAN CORPUSCULAR VOLUME 93.9 fL (80-100); MEAN PLATELET VOLUME 9.3 fL (7.4-10.4); MONOCYTES # (AUTO) 0.43 x10^3/uL (0.2-0.8); MONOCYTES % (AUTO) 10 % (2-9); NEUTROPHILS # (AUTO) 3.58 x10^3/uL (1.8-6.8); NEUTROPHILS % (AUTO) 85 % (42-75); PLATELET COUNT 111 x10^3/uL (130-400); RED BLOOD COUNT 3.12 x10^6/uL (3.82-5.3); RED CELL DISTRIBUTION WIDTH 15.3 % (9.6-15.2)
[2019-12-06 07:00] VITALS: BP 139/77
[2019-12-06] MEDS: INSULIN LISPRO 100 UNITS/ML, PEN SQ-INSULIN SCH ×4 (07:00→22:21)
[2019-12-06] MEDS: ACETAMINOPHEN 325 MG TABLET PO PRN ×2 (07:30→12:40)
[2019-12-06] MEDS: APIXABAN 5 MG TABLET PO SCH ×2 (08:06→20:33)
[2019-12-06] MEDS: CLOPIDOGREL 75 MG TABLET PO SCH (08:07)
[2019-12-06] MEDS: GABAPENTIN 100 MG CAPSULE PO SCH ×3 (08:07→20:35)
[2019-12-06] MEDS: PANTOPROZOLE 40MG TABLET PO SCH ×2 (08:07→20:34)
[2019-12-06] MEDS: LABETALOL 100 MG TABLET PO SCH ×3 (08:07→22:20)
[2019-12-06] MEDS: MULTIVITAMIN 1 TABLET PO SCH (08:08)
[2019-12-06] MEDS: mycophenOLATE SODIUM 360MG DR PO SCH ×2 (08:08→20:35)
[2019-12-06] MEDS: MAGNESIUM OXIDE 400 MG TABLET PO SCH (08:08)
[2019-12-06] MEDS: INSULIN GLARGINE 100 UNITS/ML, PEN SQ-INSULIN SCH (08:16)
[2019-12-06] MEDS: TEMPLATE NON-FORMULARY MED. (Albuterol Sulfate (Ventolin Hfa) 2 PUFFS) INH SCH (09:00)
[2019-12-06] MEDS: TACROLIMUS 1 MG CAPSULE PO SCH ×2 (09:55→20:33)
[2019-12-06] MEDS: HYDROcodone/APAP 5/325 TABLET PO PRN ×2 (14:09→22:21)
[2019-12-06 16:18] VITALS: BP 120/68
[2019-12-06] MEDS: GABAPENTIN 400 MG CAPSULE PO SCH (20:34)
[2019-12-06 20:37] VITALS: BP 112/73
[2019-12-07 00:25] VITALS: BP 111/67
[2019-12-07] MEDS: NYSTATIN 500,000 UNITS/5 ML UDC PO SCH ×4 (05:21→21:31)
[2019-12-07 05:26] LABS: BASOPHILS % (AUTO) 0 % (0-1); EOSINOPHILS # (AUTO) 0.03 x10^3/uL (0-0.4); EOSINOPHILS % (AUTO) 1 % (1-7); LYMPHOCYTES # (AUTO) 0.34 x10^3/uL (1-3.4); LYMPHOCYTES % (AUTO) 7 % (22-44); MD NO; MEAN CORPUSCULAR HEMOGLOBIN 31.4 pg (27.0-34.8); MEAN CORPUSCULAR HGB CONC 33.3 g/dL (32.4-35.8); MEAN CORPUSCULAR VOLUME 94.2 fL (80-100); MEAN PLATELET VOLUME 9.4 fL (7.4-10.4); MONOCYTES # (AUTO) 0.37 x10^3/uL (0.2-0.8); MONOCYTES % (AUTO) 8 % (2-9); NEUTROPHILS % (AUTO) 84 % (42-75); PLATELET COUNT 109 x10^3/uL (130-400); RED CELL DISTRIBUTION WIDTH 15.5 % (9.6-15.2)
[2019-12-07 05:38] LABS: ALBUMIN 2.6 g/dL (3.4-5.0); ANION GAP 7 mmol/L (5-15); CALCIUM 7.6 mg/dL (8.5-10.1); CHLORIDE 105 mmol/L (98-107); CREATININE 2.23 mg/dL (0.55-1.02)
[2019-12-07 06:55] VITALS: BP 125/74
[2019-12-07] MEDS: INSULIN LISPRO 100 UNITS/ML, PEN SQ-INSULIN SCH ×4 (06:58→22:14)
[2019-12-07] MEDS: MULTIVITAMIN 1 TABLET PO SCH (08:28)
[2019-12-07] MEDS: CLOPIDOGREL 75 MG TABLET PO SCH (08:28)
[2019-12-07] MEDS: PANTOPROZOLE 40MG TABLET PO SCH ×2 (08:28→21:31)
[2019-12-07] MEDS: APIXABAN 5 MG TABLET PO SCH ×2 (08:28→21:32)
[2019-12-07] MEDS: LABETALOL 100 MG TABLET PO SCH ×3 (08:29→22:13)
[2019-12-07] MEDS: GABAPENTIN 100 MG CAPSULE PO SCH ×3 (08:29→21:00)
[2019-12-07] MEDS: TACROLIMUS 1 MG CAPSULE PO SCH ×2 (08:30→21:31)
[2019-12-07] MEDS: mycophenOLATE SODIUM 360MG DR PO SCH ×2 (08:30→21:32)
[2019-12-07] MEDS: MAGNESIUM OXIDE 400 MG TABLET PO SCH (08:33)
[2019-12-07] MEDS: ERGOCALCIFEROL 50,000 UNIT CAPSULE PO SCH (08:33)
[2019-12-07] MEDS: INSULIN GLARGINE 100 UNITS/ML, PEN SQ-INSULIN SCH (08:34)
[2019-12-07] MEDS: TEMPLATE NON-FORMULARY MED. (Albuterol Sulfate (Ventolin Hfa) 2 PUFFS) INH SCH (09:00)
[2019-12-07] MEDS: FUROSEMIDE 40 MG TABLET PO SCH (12:36)
[2019-12-07 17:06] VITALS: BP 146/80
[2019-12-07] MEDS: HYDROcodone/APAP 5/325 TABLET PO PRN (18:43)
[2019-12-07 20:46] VITALS: BP 127/67
[2019-12-07] MEDS: GABAPENTIN 400 MG CAPSULE PO SCH (21:32)
[2019-12-08 00:53] VITALS: BP 122/72
[2019-12-08 05:35] LABS: BASOPHILS % (AUTO) 0 % (0-1); EOSINOPHILS # (AUTO) 0.03 x10^3/uL (0-0.4); EOSINOPHILS % (AUTO) 1 % (1-7); LYMPHOCYTES # (AUTO) 0.24 x10^3/uL (1-3.4); LYMPHOCYTES % (AUTO) 5 % (22-44); MD NO; MEAN CORPUSCULAR HEMOGLOBIN 31.6 pg (27.0-34.8); MEAN CORPUSCULAR HGB CONC 33.5 g/dL (32.4-35.8); MEAN CORPUSCULAR VOLUME 94.4 fL (80-100); MEAN PLATELET VOLUME 9.6 fL (7.4-10.4); MONOCYTES # (AUTO) 0.31 x10^3/uL (0.2-0.8); MONOCYTES % (AUTO) 7 % (2-9); NEUTROPHILS # (AUTO) 4.17 x10^3/uL (1.8-6.8); NEUTROPHILS % (AUTO) 88 % (42-75); PLATELET COUNT 105 x10^3/uL (130-400); RED BLOOD COUNT 3.05 x10^6/uL (3.82-5.3); RED CELL DISTRIBUTION WIDTH 15.6 % (9.6-15.2)
[2019-12-08] MEDS: NYSTATIN 500,000 UNITS/5 ML UDC PO SCH ×4 (05:41→20:44)
[2019-12-08 05:42] LABS: CALCIUM 7.5 mg/dL (8.5-10.1); CHLORIDE 106 mmol/L (98-107)
[2019-12-08 05:46] LABS: ALBUMIN 2.4 g/dL (3.4-5.0); ANION GAP 8 mmol/L (5-15); CREATININE 2.93 mg/dL (0.55-1.02)
[2019-12-08] MEDS: INSULIN LISPRO 100 UNITS/ML, PEN SQ-INSULIN SCH ×4 (07:00→20:59)
[2019-12-08 07:05] VITALS: BP 118/61
[2019-12-08] MEDS: MAGNESIUM OXIDE 400 MG TABLET PO SCH (08:55)
[2019-12-08] MEDS: APIXABAN 5 MG TABLET PO SCH ×2 (08:55→20:46)
[2019-12-08] MEDS: GABAPENTIN 100 MG CAPSULE PO SCH ×3 (08:55→20:47)
[2019-12-08] MEDS: INSULIN GLARGINE 100 UNITS/ML, PEN SQ-INSULIN SCH (08:55)
[2019-12-08] MEDS: MULTIVITAMIN 1 TABLET PO SCH (08:55)
[2019-12-08] MEDS: CLOPIDOGREL 75 MG TABLET PO SCH (08:55)
[2019-12-08] MEDS: LABETALOL 100 MG TABLET PO SCH ×3 (08:56→20:45)
[2019-12-08] MEDS: FUROSEMIDE 40 MG TABLET PO SCH (08:56)
[2019-12-08] MEDS: TACROLIMUS 1 MG CAPSULE PO SCH ×2 (08:56→20:46)
[2019-12-08] MEDS: PANTOPROZOLE 40MG TABLET PO SCH ×2 (08:56→20:46)
[2019-12-08] MEDS: mycophenOLATE SODIUM 360MG DR PO SCH ×2 (08:57→20:45)
[2019-12-08] MEDS: TEMPLATE NON-FORMULARY MED. (Albuterol Sulfate (Ventolin Hfa) 2 PUFFS) INH SCH (09:00)
[2019-12-08 12:52] VITALS: BP 112/68
[2019-12-08] MEDS: HYDROcodone/APAP 5/325 TABLET PO PRN (16:20)
[2019-12-08 20:40] VITALS: BP 123/77
[2019-12-08] MEDS: GABAPENTIN 400 MG CAPSULE PO SCH (20:46)
[2019-12-09 03:30] VITALS: BP 128/72
[2019-12-09 06:30] LABS: BASOPHILS % (AUTO) 0 % (0-1); EOSINOPHILS # (AUTO) 0.02 x10^3/uL (0-0.4); EOSINOPHILS % (AUTO) 1 % (1-7); LYMPHOCYTES # (AUTO) 0.28 x10^3/uL (1-3.4); LYMPHOCYTES % (AUTO) 8 % (22-44); MD NO; MEAN CORPUSCULAR HEMOGLOBIN 31.6 pg (27.0-34.8); MEAN CORPUSCULAR HGB CONC 33.6 g/dL (32.4-35.8); MEAN CORPUSCULAR VOLUME 94.2 fL (80-100); MEAN PLATELET VOLUME 9.8 fL (7.4-10.4); MONOCYTES # (AUTO) 0.33 x10^3/uL (0.2-0.8); MONOCYTES % (AUTO) 9 % (2-9); NEUTROPHILS # (AUTO) 3.09 x10^3/uL (1.8-6.8); NEUTROPHILS % (AUTO) 83 % (42-75); PLATELET COUNT 101 x10^3/uL (130-400); RED BLOOD COUNT 2.95 x10^6/uL (3.82-5.3); RED CELL DISTRIBUTION WIDTH 15.9 % (9.6-15.2)
[2019-12-09 06:35] LABS: ALBUMIN 2.6 g/dL (3.4-5.0); ANION GAP 8 mmol/L (5-15); CALCIUM 7.8 mg/dL (8.5-10.1); CHLORIDE 105 mmol/L (98-107); CREATININE 3.65 mg/dL (0.55-1.02)
[2019-12-09] MEDS: NYSTATIN 500,000 UNITS/5 ML UDC PO SCH ×4 (06:35→21:30)
[2019-12-09] MEDS: INSULIN LISPRO 100 UNITS/ML, PEN SQ-INSULIN SCH ×4 (07:00→21:43)
[2019-12-09 07:08] VITALS: BP 94/53
[2019-12-09] MEDS: PANTOPROZOLE 40MG TABLET PO SCH ×2 (08:14→21:29)
[2019-12-09] MEDS: CLOPIDOGREL 75 MG TABLET PO SCH (08:14)
[2019-12-09] MEDS: TACROLIMUS 1 MG CAPSULE PO SCH ×2 (08:14→21:29)
[2019-12-09] MEDS: FUROSEMIDE 40 MG TABLET PO SCH (08:14)
[2019-12-09] MEDS: APIXABAN 5 MG TABLET PO SCH ×2 (08:14→21:30)
[2019-12-09] MEDS: MAGNESIUM OXIDE 400 MG TABLET PO SCH (08:15)
[2019-12-09] MEDS: MULTIVITAMIN 1 TABLET PO SCH (08:15)
[2019-12-09] MEDS: GABAPENTIN 100 MG CAPSULE PO SCH ×3 (08:15→21:00)
[2019-12-09] MEDS: LABETALOL 100 MG TABLET PO SCH ×3 (08:15→21:29)
[2019-12-09] MEDS: mycophenOLATE SODIUM 360MG DR PO SCH ×2 (08:16→21:30)
[2019-12-09] MEDS: INSULIN GLARGINE 100 UNITS/ML, PEN SQ-INSULIN SCH (08:22)
[2019-12-09] MEDS: TEMPLATE NON-FORMULARY MED. (Albuterol Sulfate (Ventolin Hfa) 2 PUFFS) INH SCH (08:23)
[2019-12-09] MEDS: HYDROcodone/APAP 5/325 TABLET PO PRN (12:07)
[2019-12-09 14:38] VITALS: BP 120/75
[2019-12-09 19:19] VITALS: BP 129/58
[2019-12-09] MEDS: GABAPENTIN 400 MG CAPSULE PO SCH (21:30)
[2019-12-10 01:50] VITALS: BP 137/76
[2019-12-10] MEDS: NYSTATIN 500,000 UNITS/5 ML UDC PO SCH ×4 (05:23→20:54)
[2019-12-10 05:53] LABS: ANION GAP 9 mmol/L (5-15); CALCIUM 7.8 mg/dL (8.5-10.1); CHLORIDE 105 mmol/L (98-107); CREATININE 4.11 mg/dL (0.55-1.02)
[2019-12-10] MEDS: INSULIN LISPRO 100 UNITS/ML, PEN SQ-INSULIN SCH ×4 (07:00→21:09)
[2019-12-10 07:18] VITALS: BP 153/76
[2019-12-10 08:26] LABS: INTERNATIONAL NORMALIZED RATIO 1.06 (0.93-1.1); PROTHROMBIN TIME 11.2 Seconds (9.6-11.5)
[2019-12-10] MEDS: TEMPLATE NON-FORMULARY MED. (Albuterol Sulfate (Ventolin Hfa) 2 PUFFS) INH SCH (09:00)
[2019-12-10] MEDS: HYDROcodone/APAP 5/325 TABLET PO PRN (09:08)
[2019-12-10] MEDS: APIXABAN 5 MG TABLET PO SCH ×2 (09:08→20:53)
[2019-12-10] MEDS: PANTOPROZOLE 40MG TABLET PO SCH ×2 (09:09→20:54)
[2019-12-10] MEDS: CLOPIDOGREL 75 MG TABLET PO SCH (09:09)
[2019-12-10] MEDS: MULTIVITAMIN 1 TABLET PO SCH (09:09)
[2019-12-10] MEDS: MAGNESIUM OXIDE 400 MG TABLET PO SCH (09:10)
[2019-12-10] MEDS: FUROSEMIDE 40 MG TABLET PO SCH (09:10)
[2019-12-10] MEDS: TACROLIMUS 1 MG CAPSULE PO SCH ×2 (09:11→20:53)
[2019-12-10] MEDS: GABAPENTIN 100 MG CAPSULE PO SCH ×3 (09:11→20:54)
[2019-12-10] MEDS: mycophenOLATE SODIUM 360MG DR PO SCH ×2 (09:13→20:54)
[2019-12-10] MEDS: LABETALOL 100 MG TABLET PO SCH ×3 (09:14→20:52)
[2019-12-10] MEDS: INSULIN GLARGINE 100 UNITS/ML, PEN SQ-INSULIN SCH (09:27)
[2019-12-10 11:48] VITALS: BP 124/71
[2019-12-10 14:50] VITALS: BP 124/71
[2019-12-10] MEDS: GABAPENTIN 400 MG CAPSULE PO SCH (20:53)
[2019-12-10 21:13] VITALS: BP 126/77
[2019-12-11] VITALS (8 sets, daily range): BP systolic 118–152; BP diastolic 60–80
[2019-12-11] MEDS: NYSTATIN 500,000 UNITS/5 ML UDC PO SCH ×4 (05:33→21:23)
[2019-12-11 06:02] LABS: ANION GAP 8 mmol/L (5-15); BASOPHILS % (AUTO) 0 % (0-1); CALCIUM 7.9 mg/dL (8.5-10.1); CHLORIDE 107 mmol/L (98-107); CREATININE 4.38 mg/dL (0.55-1.02); EOSINOPHILS # (AUTO) 0.01 x10^3/uL (0-0.4); EOSINOPHILS % (AUTO) 0 % (1-7); LYMPHOCYTES # (AUTO) 0.21 x10^3/uL (1-3.4); LYMPHOCYTES % (AUTO) 5 % (22-44); MD NO; MEAN CORPUSCULAR HEMOGLOBIN 31.2 pg (27.0-34.8); MEAN CORPUSCULAR HGB CONC 33.1 g/dL (32.4-35.8); MEAN CORPUSCULAR VOLUME 94.2 fL (80-100); MEAN PLATELET VOLUME 9.5 fL (7.4-10.4); MONOCYTES # (AUTO) 0.26 x10^3/uL (0.2-0.8); MONOCYTES % (AUTO) 7 % (2-9); NEUTROPHILS # (AUTO) 3.55 x10^3/uL (1.8-6.8); NEUTROPHILS % (AUTO) 88 % (42-75); PLATELET COUNT 112 x10^3/uL (130-400); RED BLOOD COUNT 2.89 x10^6/uL (3.82-5.3)
[2019-12-11] MEDS: INSULIN LISPRO 100 UNITS/ML, PEN SQ-INSULIN SCH ×4 (07:23→21:24)
[2019-12-11] MEDS: TACROLIMUS 1 MG CAPSULE PO SCH (08:36)
[2019-12-11] MEDS: LABETALOL 100 MG TABLET PO SCH ×3 (08:37→21:23)
[2019-12-11] MEDS: PANTOPROZOLE 40MG TABLET PO SCH ×2 (08:37→21:23)
[2019-12-11] MEDS: APIXABAN 5 MG TABLET PO SCH (08:37)
[2019-12-11] MEDS: GABAPENTIN 100 MG CAPSULE PO SCH ×3 (08:37→21:22)
[2019-12-11] MEDS: MULTIVITAMIN 1 TABLET PO SCH (08:37)
[2019-12-11] MEDS: FUROSEMIDE 40 MG TABLET PO SCH (08:37)
[2019-12-11] MEDS: MAGNESIUM OXIDE 400 MG TABLET PO SCH (08:39)
[2019-12-11] MEDS: mycophenOLATE SODIUM 360MG DR PO SCH ×2 (08:39→21:00)
[2019-12-11] MEDS: INSULIN GLARGINE 100 UNITS/ML, PEN SQ-INSULIN SCH (08:40)
[2019-12-11] MEDS: TEMPLATE NON-FORMULARY MED. (Albuterol Sulfate (Ventolin Hfa) 2 PUFFS) INH SCH (09:04)
[2019-12-11] MEDS: HYDROcodone/APAP 5/325 TABLET PO PRN (16:29)
[2019-12-12 01:51] VITALS: BP 129/72
[2019-12-12 05:53] VITALS: BP 155/80
[2019-12-12] MEDS: NYSTATIN 500,000 UNITS/5 ML UDC PO SCH ×4 (05:55→21:52)
[2019-12-12 06:14] LABS: ANION GAP 9 mmol/L (5-15); CHLORIDE 105 mmol/L (98-107)
[2019-12-12 06:17] LABS: CREATININE 4.56 mg/dL (0.55-1.02)
[2019-12-12 06:56] VITALS: BP 133/77
[2019-12-12] MEDS: INSULIN LISPRO 100 UNITS/ML, PEN SQ-INSULIN SCH ×4 (07:19→21:53)
[2019-12-12] MEDS: MAGNESIUM OXIDE 400 MG TABLET PO SCH (08:13)
[2019-12-12] MEDS: mycophenOLATE SODIUM 360MG DR PO SCH ×2 (08:15→21:00)
[2019-12-12] MEDS: MULTIVITAMIN 1 TABLET PO SCH (08:16)
[2019-12-12] MEDS: PANTOPROZOLE 40MG TABLET PO SCH ×2 (08:16→21:52)
[2019-12-12] MEDS: GABAPENTIN 100 MG CAPSULE PO SCH ×3 (08:16→21:52)
[2019-12-12] MEDS: LABETALOL 100 MG TABLET PO SCH ×3 (08:16→21:53)
[2019-12-12] MEDS: INSULIN GLARGINE 100 UNITS/ML, PEN SQ-INSULIN SCH (08:17)
[2019-12-12] MEDS: TEMPLATE NON-FORMULARY MED. (Albuterol Sulfate (Ventolin Hfa) 2 PUFFS) INH SCH (09:03)
[2019-12-12] MEDS: ACETAMINOPHEN 325 MG TABLET PO PRN (13:06)
[2019-12-12 14:08] VITALS: BP 116/73
[2019-12-12 19:12] VITALS: BP 145/81
[2019-12-13] VITALS (7 sets, daily range): BP systolic 139–166; BP diastolic 65–94
[2019-12-13] MEDS: NYSTATIN 500,000 UNITS/5 ML UDC PO SCH ×4 (06:15→21:26)
[2019-12-13 06:38] LABS: ANION GAP 7 mmol/L (5-15); CALCIUM 8.1 mg/dL (8.5-10.1); CHLORIDE 106 mmol/L (98-107)
[2019-12-13] MEDS: INSULIN LISPRO 100 UNITS/ML, PEN SQ-INSULIN SCH ×4 (07:42→21:47)
[2019-12-13] MEDS: MAGNESIUM OXIDE 400 MG TABLET PO SCH (08:34)
[2019-12-13] MEDS: mycophenOLATE SODIUM 360MG DR PO SCH ×2 (08:34→21:45)
[2019-12-13] MEDS: MULTIVITAMIN 1 TABLET PO SCH (08:34)
[2019-12-13] MEDS: TEMPLATE NON-FORMULARY MED. (Albuterol Sulfate (Ventolin Hfa) 2 PUFFS) INH SCH (08:35)
[2019-12-13] MEDS: PANTOPROZOLE 40MG TABLET PO SCH ×2 (08:35→21:28)
[2019-12-13] MEDS: LABETALOL 100 MG TABLET PO SCH ×3 (08:35→21:27)
[2019-12-13] MEDS: GABAPENTIN 100 MG CAPSULE PO SCH ×3 (08:35→21:26)
[2019-12-13] MEDS: INSULIN GLARGINE 100 UNITS/ML, PEN SQ-INSULIN SCH (08:37)
[2019-12-13] MEDS ORDERED: HEPARIN 25,000 UNITS/250ML PMX 250 ML IV PRN (10:00)
[2019-12-13] MEDS ORDERED: HEPARIN 5,000 UNITS/ML, 1ML IV PRN (10:00)
[2019-12-13] MEDS ORDERED: HEPARIN 5,000 UNITS/ML, 1ML IV ONE (21:00)
[2019-12-14 01:24] VITALS: BP 134/72
[2019-12-14 01:29] LABS: CLOSTRIDIUM DIFFICILE ANTIGEN NEGATIVE; CLOSTRIDIUM DIFFICILE TOXIN NEGATIVE (Negative)
[2019-12-14 05:35] LABS: BASOPHILS % (AUTO) 0 % (0-1); EOSINOPHILS % (AUTO) 0 % (1-7); LYMPHOCYTES # (AUTO) 0.13 x10^3/uL (1-3.4); LYMPHOCYTES % (AUTO) 3 % (22-44); MD NO; MEAN CORPUSCULAR HEMOGLOBIN 31.5 pg (27.0-34.8); MEAN CORPUSCULAR HGB CONC 33.6 g/dL (32.4-35.8); MEAN CORPUSCULAR VOLUME 93.9 fL (80-100); MEAN PLATELET VOLUME 9.6 fL (7.4-10.4); MONOCYTES # (AUTO) 0.37 x10^3/uL (0.2-0.8); MONOCYTES % (AUTO) 7 % (2-9); NEUTROPHILS % (AUTO) 90 % (42-75); PLATELET COUNT 109 x10^3/uL (130-400); RED BLOOD COUNT 2.85 x10^6/uL (3.82-5.3); RED CELL DISTRIBUTION WIDTH 16.1 % (9.6-15.2)
[2019-12-14 05:38] LABS: ALBUMIN 2.8 g/dL (3.4-5.0); ANION GAP 10 mmol/L (5-15); CALCIUM 7.8 mg/dL (8.5-10.1); CHLORIDE 107 mmol/L (98-107); CREATININE 3.59 mg/dL (0.55-1.02)
[2019-12-14] MEDS: NYSTATIN 500,000 UNITS/5 ML UDC PO SCH ×4 (06:17→21:17)
[2019-12-14] MEDS: HYDROcodone/APAP 5/325 TABLET PO PRN (06:18)
[2019-12-14 07:50] VITALS: BP 151/77
[2019-12-14] MEDS: INSULIN LISPRO 100 UNITS/ML, PEN SQ-INSULIN SCH ×4 (08:24→21:21)
[2019-12-14] MEDS: TEMPLATE NON-FORMULARY MED. (Albuterol Sulfate (Ventolin Hfa) 2 PUFFS) INH SCH (09:00)
[2019-12-14 09:06] LABS: CULTURE INDICATED? YES; MICROSCOPIC INDICATED
[2019-12-14] MEDS: MAGNESIUM OXIDE 400 MG TABLET PO SCH (10:36)
[2019-12-14] MEDS: LABETALOL 100 MG TABLET PO SCH ×3 (10:36→21:19)
[2019-12-14] MEDS: GABAPENTIN 100 MG CAPSULE PO SCH ×3 (10:36→21:19)
[2019-12-14] MEDS: MULTIVITAMIN 1 TABLET PO SCH (10:36)
[2019-12-14] MEDS: PANTOPROZOLE 40MG TABLET PO SCH ×2 (10:36→21:18)
[2019-12-14] MEDS: ERGOCALCIFEROL 50,000 UNIT CAPSULE PO SCH (10:37)
[2019-12-14] MEDS: INSULIN GLARGINE 100 UNITS/ML, PEN SQ-INSULIN SCH (10:37)
[2019-12-14] MEDS: mycophenOLATE SODIUM 360MG DR PO SCH ×2 (10:37→21:20)
[2019-12-14] MEDS: TACROLIMUS 1 MG CAPSULE PO SCH ×2 (10:57→23:09)
[2019-12-14] MEDS: IRON SUCROSE COMPLEX 100MG/5ML IV SCH (10:58)
[2019-12-14] MEDS: CEFTRIAXONE PMX 1GM/50ML 50 ML IV SCH (11:45)
[2019-12-14 13:10] VITALS: BP 139/88
[2019-12-14 20:15] VITALS: BP 138/65
[2019-12-15 01:20] VITALS: BP 142/70
[2019-12-15 05:35] VITALS: BP 160/77
[2019-12-15] MEDS: NYSTATIN 500,000 UNITS/5 ML UDC PO SCH ×4 (05:36→21:09)
[2019-12-15] MEDS: INSULIN LISPRO 100 UNITS/ML, PEN SQ-INSULIN SCH ×4 (07:00→21:10)
[2019-12-15 07:04] LABS: BASOPHILS % (AUTO) 0 % (0-1); EOSINOPHILS % (AUTO) 0 % (1-7); LYMPHOCYTES # (AUTO) 0.18 x10^3/uL (1-3.4); LYMPHOCYTES % (AUTO) 5 % (22-44); MD NO; MEAN CORPUSCULAR HGB CONC 32.9 g/dL (32.4-35.8); MEAN CORPUSCULAR VOLUME 94.4 fL (80-100); MEAN PLATELET VOLUME 8.9 fL (7.4-10.4); MONOCYTES # (AUTO) 0.26 x10^3/uL (0.2-0.8); MONOCYTES % (AUTO) 7 % (2-9); NEUTROPHILS # (AUTO) 3.17 x10^3/uL (1.8-6.8); NEUTROPHILS % (AUTO) 88 % (42-75); PLATELET COUNT 101 x10^3/uL (130-400); RED BLOOD COUNT 2.98 x10^6/uL (3.82-5.3); RED CELL DISTRIBUTION WIDTH 16.2 % (9.6-15.2)
[2019-12-15 07:14] LABS: INTERNATIONAL NORMALIZED RATIO 0.97 (0.93-1.1); PROTHROMBIN TIME 10.3 Seconds (9.6-11.5)
[2019-12-15 07:15] LABS: ALBUMIN 2.9 g/dL (3.4-5.0); ANION GAP 10 mmol/L (5-15); CALCIUM 8.2 mg/dL (8.5-10.1); CHLORIDE 108 mmol/L (98-107)
[2019-12-15 07:19] VITALS: BP 155/87
[2019-12-15] MEDS: GABAPENTIN 100 MG CAPSULE PO SCH ×3 (07:27→21:08)
[2019-12-15] MEDS: PANTOPROZOLE 40MG TABLET PO SCH ×2 (07:28→21:09)
[2019-12-15] MEDS: mycophenOLATE SODIUM 360MG DR PO SCH ×2 (07:28→21:09)
[2019-12-15] MEDS: HYDROcodone/APAP 5/325 TABLET PO PRN ×2 (07:28→14:35)
[2019-12-15] MEDS: MULTIVITAMIN 1 TABLET PO SCH (09:00)
[2019-12-15] MEDS: LABETALOL 100 MG TABLET PO SCH ×3 (09:00→21:08)
[2019-12-15] MEDS: INSULIN GLARGINE 100 UNITS/ML, PEN SQ-INSULIN SCH (09:00)
[2019-12-15] MEDS: TEMPLATE NON-FORMULARY MED. (Albuterol Sulfate (Ventolin Hfa) 2 PUFFS) INH SCH (09:00)
[2019-12-15] MEDS: MAGNESIUM OXIDE 400 MG TABLET PO SCH (09:00)
[2019-12-15] MEDS ORDERED: FENTANYL PF 100 MCG/2ML ONE (09:56)
[2019-12-15] MEDS ORDERED: MIDAZOLAM 1 MG/ML, 5ML ONE (09:56)
[2019-12-15] MEDS ORDERED: FLUMAZENIL 0.1 MG/1 ML, 5ML ONE (09:57)
[2019-12-15] MEDS ORDERED: NALOXONE 1 MG/ML, 2ML ONE (09:57)
[2019-12-15] MEDS ORDERED: LIDOCAINE 1%, 20ML ONE (11:07)
[2019-12-15] MEDS: TACROLIMUS 1 MG CAPSULE PO SCH ×2 (12:35→22:14)
[2019-12-15] MEDS: IRON SUCROSE COMPLEX 100MG/5ML IV SCH (12:35)
[2019-12-15] MEDS: CEFTRIAXONE PMX 1GM/50ML 50 ML IV SCH (12:37)
[2019-12-15] MEDS ORDERED: GUAIFENESIN 200 MG TABLET PO SCH (16:00)
[2019-12-15 16:01] VITALS: BP 119/71
[2019-12-15 20:55] VITALS: BP 154/77
[2019-12-16 01:48] VITALS: BP 149/86
[2019-12-16 05:22] VITALS: BP 149/93
[2019-12-16 05:22] LABS: ALANINE AMINOTRANSFERASE 24 U/L (12-78); ALBUMIN 2.6 g/dL (3.4-5.0); ANION GAP 11 mmol/L (5-15); CALCIUM 7.8 mg/dL (8.5-10.1); CHLORIDE 108 mmol/L (98-107); CREATININE 3.55 mg/dL (0.55-1.02)
[2019-12-16] MEDS: NYSTATIN 500,000 UNITS/5 ML UDC PO SCH ×4 (05:23→22:23)
[2019-12-16 05:24] LABS: ALKALINE PHOSPHATASE 75 U/L (45-117); BILIRUBIN,TOTAL 0.4 mg/dL (0.2-1.0); MEAN CORPUSCULAR HEMOGLOBIN 31.3 pg (27.0-34.8); MEAN CORPUSCULAR VOLUME 94.9 fL (80-100); RED BLOOD COUNT 2.58 x10^6/uL (3.82-5.3); RED CELL DISTRIBUTION WIDTH 16.6 % (9.6-15.2)
[2019-12-16 05:40] LABS: BASOPHILS % (AUTO) 0 % (0-1); EOSINOPHILS # (AUTO) 0.03 x10^3/uL (0-0.4); EOSINOPHILS % (AUTO) 1 % (1-7); LYMPHOCYTES # (AUTO) 0.14 x10^3/uL (1-3.4); LYMPHOCYTES % (AUTO) 4 % (22-44); MD SCAN; MONOCYTES # (AUTO) 0.28 x10^3/uL (0.2-0.8); MONOCYTES % (AUTO) 9 % (2-9); NEUTROPHILS # (AUTO) 2.71 x10^3/uL (1.8-6.8); NEUTROPHILS % (AUTO) 86 % (42-75); PLATELET COUNT 77 x10^3/uL (130-400)
[2019-12-16] MEDS: INSULIN LISPRO 100 UNITS/ML, PEN SQ-INSULIN SCH ×4 (07:26→22:25)
[2019-12-16 08:24] VITALS: BP 134/74
[2019-12-16 08:30] VITALS: BP 135/74
[2019-12-16] MEDS: PANTOPROZOLE 40MG TABLET PO SCH ×2 (08:39→22:23)
[2019-12-16] MEDS: GABAPENTIN 100 MG CAPSULE PO SCH ×3 (08:39→22:24)
[2019-12-16] MEDS: MAGNESIUM OXIDE 400 MG TABLET PO SCH (08:39)
[2019-12-16] MEDS: MULTIVITAMIN 1 TABLET PO SCH (08:40)
[2019-12-16] MEDS: LABETALOL 100 MG TABLET PO SCH ×3 (08:40→22:24)
[2019-12-16] MEDS: INSULIN GLARGINE 100 UNITS/ML, PEN SQ-INSULIN SCH (08:41)
[2019-12-16] MEDS: mycophenOLATE SODIUM 360MG DR PO SCH ×2 (08:42→22:24)
[2019-12-16] MEDS: TEMPLATE NON-FORMULARY MED. (Albuterol Sulfate (Ventolin Hfa) 2 PUFFS) INH SCH (08:46)
[2019-12-16] MEDS ORDERED: LIDOCAINE 1%, 10ML ONE (11:26)
[2019-12-16] MEDS: IRON SUCROSE COMPLEX 100MG/5ML IV SCH (12:33)
[2019-12-16] MEDS: CEFTRIAXONE PMX 1GM/50ML 50 ML IV SCH (12:33)
[2019-12-16] MEDS: HYDROcodone/APAP 5/325 TABLET PO PRN (12:35)
[2019-12-16] MEDS: TACROLIMUS 1 MG CAPSULE PO SCH (12:46)
[2019-12-16 13:24] VITALS: BP 130/57
[2019-12-16] MEDS: IMMUNE GLOBULIN IV SCH (17:29)
[2019-12-16 18:53] VITALS: BP 126/74
[2019-12-17] VITALS (12 sets, daily range): BP systolic 121–159; BP diastolic 68–90
[2019-12-17] MEDS: NYSTATIN 500,000 UNITS/5 ML UDC PO SCH ×4 (06:22→21:10)
[2019-12-17 06:38] LABS: MEAN CORPUSCULAR HEMOGLOBIN 31.6 pg (27.0-34.8); MEAN CORPUSCULAR HGB CONC 33.1 g/dL (32.4-35.8); MEAN CORPUSCULAR VOLUME 95.3 fL (80-100); MEAN PLATELET VOLUME 9.7 fL (7.4-10.4); PLATELET COUNT 69 x10^3/uL (130-400); RED BLOOD COUNT 2.15 x10^6/uL (3.82-5.3); RED CELL DISTRIBUTION WIDTH 16.7 % (9.6-15.2)
[2019-12-17 06:42] LABS: ALBUMIN 2.3 g/dL (3.4-5.0); ANION GAP 8 mmol/L (5-15); CALCIUM 7.5 mg/dL (8.5-10.1); CHLORIDE 106 mmol/L (98-107); CREATININE 3.93 mg/dL (0.55-1.02)
[2019-12-17] MEDS: INSULIN LISPRO 100 UNITS/ML, PEN SQ-INSULIN SCH ×4 (07:00→21:12)
[2019-12-17 07:53] LABS: MEAN CORPUSCULAR HEMOGLOBIN 31.5 pg (27.0-34.8); MEAN CORPUSCULAR HGB CONC 33.2 g/dL (32.4-35.8); MEAN PLATELET VOLUME 9.2 fL (7.4-10.4); PLATELET COUNT 75 x10^3/uL (130-400); RED BLOOD COUNT 2.25 x10^6/uL (3.82-5.3); RED CELL DISTRIBUTION WIDTH 16.9 % (9.6-15.2)
[2019-12-17 08:00] LABS: BASOPHILS % (AUTO) 0 % (0-1); EOSINOPHILS % (AUTO) 0 % (1-7); LYMPHOCYTES # (AUTO) 0.12 x10^3/uL (1-3.4); LYMPHOCYTES % (AUTO) 6 % (22-44); MD SCAN; MONOCYTES # (AUTO) 0.21 x10^3/uL (0.2-0.8); MONOCYTES % (AUTO) 12 % (2-9); NEUTROPHILS # (AUTO) 1.47 x10^3/uL (1.8-6.8); NEUTROPHILS % (AUTO) 82 % (42-75)
[2019-12-17] MEDS: MULTIVITAMIN 1 TABLET PO SCH (08:12)
[2019-12-17] MEDS: LABETALOL 100 MG TABLET PO SCH ×3 (08:13→21:11)
[2019-12-17] MEDS: MAGNESIUM OXIDE 400 MG TABLET PO SCH (08:13)
[2019-12-17] MEDS: mycophenOLATE SODIUM 360MG DR PO SCH ×2 (08:13→21:10)
[2019-12-17] MEDS: PANTOPROZOLE 40MG TABLET PO SCH ×2 (08:13→21:10)
[2019-12-17] MEDS: INSULIN GLARGINE 100 UNITS/ML, PEN SQ-INSULIN SCH (08:14)
[2019-12-17 08:21] LABS: MD YES
[2019-12-17 08:24] LABS: BAND#(MANUAL) 0.08 x10^3/uL; BANDS%(MANUAL) 4 % (0-7); LYMPH#(MANUAL) 0.16 x10^3/uL (1-3.4); LYMPHS% (MANUAL) 8 % (22-44); METAMYELOCYTES# (MANUAL) 0.02 x10^3/uL (0-0); METAMYELOCYTES% (MANUAL) 1 % (0-1); MONOS#(MANUAL) 0.16 x10^3/uL (0.3-2.7); MONOS% (MANUAL) 8 % (2-9); MYELOCYTES# (MANUAL) 0.02 x10^3/uL (0-0); MYELOCYTES% (MANUAL) 1 % (0-0); SEG#(MANUAL) 1.56 x10^3/uL (1.8-6.8); SEGS% (MANUAL) 78 % (42-75)
[2019-12-17 08:25] LABS: ANISOCYTOSIS 1+; OVALOCYTES 1+; POLYCHROMASIA 1+
[2019-12-17 08:26] LABS: <PLATELET ESTIMATE> DECREASED; <PLT MORPHOLOGY> NORMAL PLT MORPH
[2019-12-17] MEDS: GABAPENTIN 100 MG CAPSULE PO SCH ×3 (08:30→21:10)
[2019-12-17] MEDS: ACETAMINOPHEN 325 MG TABLET PO PRN (08:31)
[2019-12-17] MEDS: TEMPLATE NON-FORMULARY MED. (Albuterol Sulfate (Ventolin Hfa) 2 PUFFS) INH SCH (09:00)
[2019-12-17] MEDS: TACROLIMUS 1 MG CAPSULE PO SCH ×2 (09:54→21:59)
[2019-12-17] MEDS: CEFTRIAXONE PMX 1GM/50ML 50 ML IV SCH (12:11)
[2019-12-17] MEDS: IRON SUCROSE COMPLEX 100MG/5ML IV SCH (12:11)
[2019-12-17] MEDS: IMMUNE GLOBULIN IV SCH (17:00)
[2019-12-17] MEDS: HYDROcodone/APAP 5/325 TABLET PO PRN (21:12)
[2019-12-18 00:14] VITALS: BP 152/76
[2019-12-18] MEDS: NYSTATIN 500,000 UNITS/5 ML UDC PO SCH ×4 (05:07→20:43)
[2019-12-18] MEDS: ACETAMINOPHEN 325 MG TABLET PO PRN (05:07)
[2019-12-18 06:38] VITALS: BP 129/73
[2019-12-18] MEDS: INSULIN LISPRO 100 UNITS/ML, PEN SQ-INSULIN SCH ×4 (07:00→20:47)
[2019-12-18 07:49] LABS: ALBUMIN 2.2 g/dL (3.4-5.0); ANION GAP 9 mmol/L (5-15); CALCIUM 7.4 mg/dL (8.5-10.1); CHLORIDE 105 mmol/L (98-107); CREATININE 4.12 mg/dL (0.55-1.02)
[2019-12-18 08:46] LABS: MEAN CORPUSCULAR VOLUME 94.1 fL (80-100); MEAN PLATELET VOLUME 9.5 fL (7.4-10.4); PLATELET COUNT 59 x10^3/uL (130-400); RED BLOOD COUNT 2.42 x10^6/uL (3.82-5.3); RED CELL DISTRIBUTION WIDTH 16.2 % (9.6-15.2)
[2019-12-18 08:53] LABS: BASOPHILS % (AUTO) 0 % (0-1); EOSINOPHILS % (AUTO) 0 % (1-7); LYMPHOCYTES # (AUTO) 0.15 x10^3/uL (1-3.4); LYMPHOCYTES % (AUTO) 8 % (22-44); MD SCAN; MONOCYTES # (AUTO) 0.14 x10^3/uL (0.2-0.8); MONOCYTES % (AUTO) 8 % (2-9); NEUTROPHILS # (AUTO) 1.54 x10^3/uL (1.8-6.8); NEUTROPHILS % (AUTO) 84 % (42-75)
[2019-12-18] MEDS: MULTIVITAMIN 1 TABLET PO SCH (08:57)
[2019-12-18] MEDS: INSULIN GLARGINE 100 UNITS/ML, PEN SQ-INSULIN SCH (08:59)
[2019-12-18] MEDS: MAGNESIUM OXIDE 400 MG TABLET PO SCH (08:59)
[2019-12-18] MEDS: PANTOPROZOLE 40MG TABLET PO SCH ×2 (08:59→20:43)
[2019-12-18] MEDS: GABAPENTIN 100 MG CAPSULE PO SCH ×3 (08:59→20:43)
[2019-12-18] MEDS: TEMPLATE NON-FORMULARY MED. (Albuterol Sulfate (Ventolin Hfa) 2 PUFFS) INH SCH (09:00)
[2019-12-18] MEDS: LABETALOL 100 MG TABLET PO SCH ×3 (09:00→20:43)
[2019-12-18] MEDS: mycophenOLATE SODIUM 360MG DR PO SCH ×2 (09:00→20:43)
[2019-12-18] MEDS: TACROLIMUS 1 MG CAPSULE PO SCH ×2 (11:29→22:29)
[2019-12-18] MEDS: IRON SUCROSE COMPLEX 100MG/5ML IV SCH (11:29)
[2019-12-18] MEDS ORDERED: OMNIPAQUE 350 MG/ML, 100ML BOTTLE ONE (11:41)
[2019-12-18] MEDS: CEFTRIAXONE PMX 1GM/50ML 50 ML IV SCH (17:19)
[2019-12-18 19:54] VITALS: BP 158/88
[2019-12-19 01:41] VITALS: BP 148/84
[2019-12-19 05:09] LABS: MEAN CORPUSCULAR HGB CONC 33.7 g/dL (32.4-35.8); MEAN CORPUSCULAR VOLUME 94.9 fL (80-100); MEAN PLATELET VOLUME 9.3 fL (7.4-10.4); PLATELET COUNT 55 x10^3/uL (130-400); RED BLOOD COUNT 2.49 x10^6/uL (3.82-5.3); RED CELL DISTRIBUTION WIDTH 16.8 % (9.6-15.2)
[2019-12-19 05:15] LABS: ALBUMIN 2.2 g/dL (3.4-5.0); ANION GAP 8 mmol/L (5-15); CALCIUM 7.4 mg/dL (8.5-10.1); CHLORIDE 104 mmol/L (98-107); CREATININE 2.65 mg/dL (0.55-1.02)
[2019-12-19 05:48] LABS: MD YES
[2019-12-19 05:51] LABS: BAND#(MANUAL) 0.02 x10^3/uL; BANDS%(MANUAL) 1 % (0-7); LYMPH#(MANUAL) 0.18 x10^3/uL (1-3.4); LYMPHS% (MANUAL) 10 % (22-44); METAMYELOCYTES# (MANUAL) 0.02 x10^3/uL (0-0); METAMYELOCYTES% (MANUAL) 1 % (0-1); MONOS#(MANUAL) 0.14 x10^3/uL (0.3-2.7); MONOS% (MANUAL) 8 % (2-9); MYELOCYTES# (MANUAL) 0.02 x10^3/uL (0-0); MYELOCYTES% (MANUAL) 1 % (0-0); NRBC % (MANUAL) 2 % (0-1); SEG#(MANUAL) 1.42 x10^3/uL (1.8-6.8); SEGS% (MANUAL) 79 % (42-75)
[2019-12-19 05:52] LABS: <PLATELET ESTIMATE> DECREASED; <PLT MORPHOLOGY> NORMAL PLT MORPH; ANISOCYTOSIS 1+; OVALOCYTES 1+; POLYCHROMASIA 1+
[2019-12-19] MEDS: NYSTATIN 500,000 UNITS/5 ML UDC PO SCH ×5 (06:08→21:41)
[2019-12-19] MEDS: INSULIN LISPRO 100 UNITS/ML, PEN SQ-INSULIN SCH ×4 (07:00→21:41)
[2019-12-19] MEDS: HYDROcodone/APAP 5/325 TABLET PO PRN ×2 (08:13→20:01)
[2019-12-19 08:21] VITALS: BP 163/82
[2019-12-19] MEDS: INSULIN GLARGINE 100 UNITS/ML, PEN SQ-INSULIN SCH (09:00)
[2019-12-19] MEDS: TEMPLATE NON-FORMULARY MED. (Albuterol Sulfate (Ventolin Hfa) 2 PUFFS) INH SCH (09:00)
[2019-12-19] MEDS: MULTIVITAMIN 1 TABLET PO SCH (09:00)
[2019-12-19] MEDS: LABETALOL 100 MG TABLET PO SCH ×3 (09:00→20:01)
[2019-12-19] MEDS: ONDANSETRON 2MG/ML, 2ML IVPush PRN (12:46)
[2019-12-19] MEDS: TACROLIMUS 1 MG CAPSULE PO SCH ×2 (12:49→20:00)
[2019-12-19] MEDS: PANTOPROZOLE 40MG TABLET PO SCH ×2 (12:50→20:00)
[2019-12-19] MEDS: GABAPENTIN 300 MG CAPSULE PO SCH ×2 (13:00→20:00)
[2019-12-19] MEDS: CLOPIDOGREL 75 MG TABLET PO SCH (13:29)
[2019-12-19] MEDS: CEFTRIAXONE PMX 1GM/50ML 50 ML IV SCH (13:29)
[2019-12-19 14:07] VITALS: BP 153/77
[2019-12-19 20:20] VITALS: BP 160/88
[2019-12-19] MEDS ORDERED: MYCOPHENOLATE SODIUM 180 MG PO SCH (21:00)
[2019-12-20] VITALS (10 sets, daily range): BP systolic 126–181; BP diastolic 79–98
[2019-12-20 05:22] LABS: ALBUMIN 2.4 g/dL (3.4-5.0); ANION GAP 7 mmol/L (5-15); CALCIUM 7.8 mg/dL (8.5-10.1); CHLORIDE 103 mmol/L (98-107)
[2019-12-20 05:31] LABS: MEAN CORPUSCULAR HEMOGLOBIN 31.8 pg (27.0-34.8); MEAN CORPUSCULAR HGB CONC 33.8 g/dL (32.4-35.8); MEAN CORPUSCULAR VOLUME 94.1 fL (80-100); MEAN PLATELET VOLUME 10.2 fL (7.4-10.4); PLATELET COUNT 52 x10^3/uL (130-400); RED BLOOD COUNT 2.65 x10^6/uL (3.82-5.3); RED CELL DISTRIBUTION WIDTH 17.4 % (9.6-15.2)
[2019-12-20] MEDS: NYSTATIN 500,000 UNITS/5 ML UDC PO SCH ×2 (05:39→12:46)
[2019-12-20] MEDS: ACETAMINOPHEN 325 MG TABLET PO PRN (05:39)
[2019-12-20 06:00] LABS: MD YES
[2019-12-20 06:05] LABS: BAND#(MANUAL) 0.01 x10^3/uL; BANDS%(MANUAL) 1 % (0-7); LYMPH#(MANUAL) 0.06 x10^3/uL (1-3.4); LYMPHS% (MANUAL) 5 % (22-44); METAMYELOCYTES# (MANUAL) 0.02 x10^3/uL (0-0); METAMYELOCYTES% (MANUAL) 2 % (0-1); MONOS#(MANUAL) 0.12 x10^3/uL (0.3-2.7); MONOS% (MANUAL) 10 % (2-9); NRBC % (MANUAL) 2 % (0-1); SEG#(MANUAL) 0.98 x10^3/uL (1.8-6.8); SEGS% (MANUAL) 82 % (42-75)
[2019-12-20 06:07] LABS: ANISOCYTOSIS 1+; POLYCHROMASIA 1+
[2019-12-20 06:09] LABS: <PLATELET ESTIMATE> DECREASED; <PLT MORPHOLOGY> NORMAL PLT MORPH; OVALOCYTES 1+
[2019-12-20] MEDS: INSULIN LISPRO 100 UNITS/ML, PEN SQ-INSULIN SCH ×4 (07:00→21:39)
[2019-12-20] MEDS: PANTOPROZOLE 40MG TABLET PO SCH ×2 (08:10→21:43)
[2019-12-20] MEDS: MULTIVITAMIN 1 TABLET PO SCH (09:00)
[2019-12-20] MEDS: TEMPLATE NON-FORMULARY MED. (Albuterol Sulfate (Ventolin Hfa) 2 PUFFS) INH SCH (09:00)
[2019-12-20] MEDS: INSULIN GLARGINE 100 UNITS/ML, PEN SQ-INSULIN SCH (09:42)
[2019-12-20] MEDS: CLOPIDOGREL 75 MG TABLET PO SCH (09:43)
[2019-12-20] MEDS: TACROLIMUS 1 MG CAPSULE PO SCH ×2 (09:43→21:43)
[2019-12-20] MEDS: LABETALOL 100 MG TABLET PO SCH ×3 (09:43→21:40)
[2019-12-20] MEDS: CEFTRIAXONE PMX 1GM/50ML 50 ML IV SCH (13:07)
[2019-12-20] MEDS: LOPERAMIDE 2 MG CAPSULE PO PRN ×2 (13:44→23:57)
[2019-12-20] MEDS ORDERED: NEOSPORIN OINT, 15GM TP PRN (18:00)
[2019-12-20] MEDS ORDERED: LABETALOL 200 MG TABLET ONE (21:18)
[2019-12-20] MEDS: GABAPENTIN 300 MG CAPSULE PO SCH (21:43)
[2019-12-20] MEDS: HYDROcodone/APAP 5/325 TABLET PO PRN (23:57)
[2019-12-21 00:43] VITALS: BP 139/74
[2019-12-21 01:15] VITALS: BP 160/85
[2019-12-21 01:43] VITALS: BP 148/78
[2019-12-21 08:17] VITALS: BP 154/94
--- NOTE | 2019-12-21 08:18 | NUR ---
JOVAN SALDAÑA Fall Risk Medications present and NOT receiving anticoagulants. Signed: 12/21/19 at 0818 by Alejandro BAIG
[2019-12-21] MEDS ORDERED: AMLODIPINE 5 MG TABLET PO ONE (09:00)
[2019-12-21 09:09] LABS: ANION GAP 8 mmol/L (5-15); CALCIUM 7.5 mg/dL (8.5-10.1); CHLORIDE 103 mmol/L (98-107); CREATININE 3.98 mg/dL (0.55-1.02)
[2019-12-21] MEDS: INSULIN LISPRO 100 UNITS/ML, PEN SQ-INSULIN SCH ×4 (09:17→22:00)
[2019-12-21] MEDS: ERGOCALCIFEROL 50,000 UNIT CAPSULE PO SCH (09:32)
[2019-12-21] MEDS: LABETALOL 100 MG TABLET PO SCH ×3 (09:34→21:45)
[2019-12-21] MEDS: TACROLIMUS 1 MG CAPSULE PO SCH ×2 (09:34→21:45)
[2019-12-21] MEDS: MULTIVITAMIN 1 TABLET PO SCH (09:34)
[2019-12-21] MEDS: CLOPIDOGREL 75 MG TABLET PO SCH (09:34)
[2019-12-21] MEDS: PANTOPROZOLE 40MG TABLET PO SCH ×2 (09:34→21:45)
[2019-12-21] MEDS: INSULIN GLARGINE 100 UNITS/ML, PEN SQ-INSULIN SCH (09:35)
[2019-12-21] MEDS: TEMPLATE NON-FORMULARY MED. (Albuterol Sulfate (Ventolin Hfa) 2 PUFFS) INH SCH (09:35)
[2019-12-21 09:38] LABS: MEAN CORPUSCULAR HEMOGLOBIN 32.4 pg (27.0-34.8); MEAN CORPUSCULAR HGB CONC 33.7 g/dL (32.4-35.8); MEAN CORPUSCULAR VOLUME 96.1 fL (80-100); MEAN PLATELET VOLUME 8.9 fL (7.4-10.4); RED BLOOD COUNT 2.68 x10^6/uL (3.82-5.3); RED CELL DISTRIBUTION WIDTH 16.6 % (9.6-15.2)
[2019-12-21 09:44] LABS: MD YES; PLATELET COUNT 49 x10^3/uL (130-400)
[2019-12-21 09:47] LABS: ANISOCYTOSIS 1+; BAND#(MANUAL) 0.01 x10^3/uL; BANDS%(MANUAL) 1 % (0-7); LYMPH#(MANUAL) 0.19 x10^3/uL (1-3.4); LYMPHS% (MANUAL) 16 % (22-44); MONOS#(MANUAL) 0.11 x10^3/uL (0.3-2.7); MONOS% (MANUAL) 9 % (2-9); NRBC % (MANUAL) 2 % (0-1); POLYCHROMASIA 1+; SEG#(MANUAL) 0.89 x10^3/uL (1.8-6.8); SEGS% (MANUAL) 74 % (42-75)
[2019-12-21 09:48] LABS: <PLATELET ESTIMATE> DECREASED; <PLT MORPHOLOGY> NORMAL PLT MORPH; OVALOCYTES 1+
[2019-12-21] MEDS ORDERED: TBO-FILGRASTIM 300 MCG/0.5 ML SQ ONE (10:00)
[2019-12-21 12:51] VITALS: BP 155/86
[2019-12-21 20:46] VITALS: BP 147/87
[2019-12-21] MEDS: GABAPENTIN 300 MG CAPSULE PO SCH (21:45)
[2019-12-21] MEDS: HYDROcodone/APAP 5/325 TABLET PO PRN (23:11)
[2019-12-22 03:30] VITALS: BP 133/87
[2019-12-22 06:16] LABS: ANION GAP 9 mmol/L (5-15); CALCIUM 7.7 mg/dL (8.5-10.1); CHLORIDE 102 mmol/L (98-107)
[2019-12-22 06:17] LABS: CREATININE 4.23 mg/dL (0.55-1.02)
[2019-12-22 06:24] LABS: MEAN CORPUSCULAR HEMOGLOBIN 33.3 pg (27.0-34.8); MEAN CORPUSCULAR HGB CONC 33.6 g/dL (32.4-35.8); MEAN CORPUSCULAR VOLUME 99.1 fL (80-100); PLATELET COUNT 51 x10^3/uL (130-400); RED BLOOD COUNT 2.42 x10^6/uL (3.82-5.3); RED CELL DISTRIBUTION WIDTH 17.2 % (9.6-15.2)
[2019-12-22 06:41] LABS: MD YES
[2019-12-22 06:42] VITALS: BP 142/78
[2019-12-22 06:43] LABS: BANDS%(MANUAL) 8 % (0-7); MONOS#(MANUAL) 0.32 x10^3/uL (0.3-2.7); MONOS% (MANUAL) 5 % (2-9); NRBC % (MANUAL) 2 % (0-1)
[2019-12-22 06:44] LABS: ANISOCYTOSIS 1+; LYMPH#(MANUAL) 0.38 x10^3/uL (1-3.4); LYMPHS% (MANUAL) 6 % (22-44); POLYCHROMASIA 1+; SEGS% (MANUAL) 81 % (42-75)
[2019-12-22 06:45] LABS: <PLATELET ESTIMATE> DECREASED; BASOPHILLIC STIPPLING 1+
[2019-12-22 06:46] LABS: <PLT MORPHOLOGY> NORMAL PLT MORPH
[2019-12-22] MEDS: INSULIN LISPRO 100 UNITS/ML, PEN SQ-INSULIN SCH ×4 (07:00→20:13)
[2019-12-22] MEDS: ONDANSETRON 2MG/ML, 2ML IVPush PRN (08:06)
[2019-12-22] MEDS: INSULIN GLARGINE 100 UNITS/ML, PEN SQ-INSULIN SCH (08:06)
[2019-12-22] MEDS: LABETALOL 100 MG TABLET PO SCH ×3 (09:00→20:13)
[2019-12-22] MEDS: ACETAMINOPHEN 325 MG TABLET PO PRN (11:27)
[2019-12-22 12:18] VITALS: BP 143/87
[2019-12-22] MEDS: TEMPLATE NON-FORMULARY MED. (Albuterol Sulfate (Ventolin Hfa) 2 PUFFS) INH SCH (12:24)
[2019-12-22] MEDS: PANTOPROZOLE 40MG TABLET PO SCH ×2 (12:25→20:13)
[2019-12-22] MEDS: MULTIVITAMIN 1 TABLET PO SCH (12:25)
[2019-12-22] MEDS: TACROLIMUS 1 MG CAPSULE PO SCH ×2 (12:25→20:45)
[2019-12-22] MEDS: CLOPIDOGREL 75 MG TABLET PO SCH (12:25)
[2019-12-22 13:22] VITALS: BP 121/80
[2019-12-22 16:46] VITALS: BP 138/81
[2019-12-22 18:36] VITALS: BP 136/80
[2019-12-22] MEDS: GABAPENTIN 300 MG CAPSULE PO SCH (20:13)
[2019-12-22] MEDS: HYDROcodone/APAP 5/325 TABLET PO PRN (20:45)
[2019-12-23 02:45] VITALS: BP 121/72
[2019-12-23 06:41] VITALS: BP 125/60
[2019-12-23] MEDS: INSULIN LISPRO 100 UNITS/ML, PEN SQ-INSULIN SCH (07:00)
[2019-12-23] MEDS: TEMPLATE NON-FORMULARY MED. (Albuterol Sulfate (Ventolin Hfa) 2 PUFFS) INH SCH (09:00)
[2019-12-23] MEDS ORDERED: MYCOPHENOLATE SODIUM 180 MG PO SCH (09:00)
[2019-12-23] MEDS ORDERED: Neosporin Oint, 15GM TP (09:09)
[2019-12-23] MEDS ORDERED: LABE100T6 PO (09:09)
[2019-12-23] MEDS ORDERED: ALPR0.254 PO (09:09)
[2019-12-23] MEDS ORDERED: MYCO180T3 PO (09:09)
[2019-12-23] MEDS ORDERED: CLOP75TA PO (09:09)
[2019-12-23] MEDS ORDERED: INSU100I13 SQ-INSULIN (09:09)
[2019-12-23] MEDS ORDERED: TACR1CAP4 PO (09:09)
[2019-12-23] MEDS ORDERED: PRED20TA PO (09:09)
[2019-12-23] MEDS ORDERED: GABA300C10 PO (09:09)
[2019-12-23] MEDS ORDERED: PANT40TA5 PO (09:09)
[2019-12-23] MEDS ORDERED: BUSP7.5T3 PO (09:09)
[2019-12-23] MEDS: TACROLIMUS 1 MG CAPSULE PO SCH (09:16)
[2019-12-23] MEDS: CLOPIDOGREL 75 MG TABLET PO SCH (09:17)
[2019-12-23] MEDS: MULTIVITAMIN 1 TABLET PO SCH (09:17)
[2019-12-23] MEDS: LABETALOL 100 MG TABLET PO SCH (09:17)
[2019-12-23] MEDS: PANTOPROZOLE 40MG TABLET PO SCH (09:17)
[2019-12-23] MEDS: INSULIN GLARGINE 100 UNITS/ML, PEN SQ-INSULIN SCH (09:18)
== END 2019-12-23 11:54 | disposition home or self-care (01) | DRG 698 ==
LOC: ED 23:44 → EDIP 11-28 01:51 → INTOOBSV 11-28 01:51 → OBSVTOIN 11-28 01:51 → 5SO 11-28 02:49 → DCLOUNGE 12-23 11:32
PROVIDERS: ADMIT Internal Medicine; ATTEND Hospitalist
PROC: 02HV33Z Insertion of Infusion Device into Superior Vena Cava, Percutaneous Approach (ICD-10-PCS; principal; 2019-12-05)
PROC: B548ZZA Ultrasonography of Superior Vena Cava, Guidance (ICD-10-PCS; 2019-12-05)
PROC: 0JH63XZ Insertion of Tunneled Vascular Access Device into Chest Subcutaneous Tissue and Fascia, Percutaneous Approach (ICD-10-PCS; 2019-12-15)
PROC: 02H633Z Insertion of Infusion Device into Right Atrium, Percutaneous Approach (ICD-10-PCS; 2019-12-15)
PROC: B5181ZA Fluoroscopy of Superior Vena Cava using Low Osmolar Contrast, Guidance (ICD-10-PCS; 2019-12-15)
PROC: B548ZZA Ultrasonography of Superior Vena Cava, Guidance (ICD-10-PCS; 2019-12-15)
PROC: 0TB13ZX Excision of Left Kidney, Percutaneous Approach, Diagnostic (ICD-10-PCS; 2019-12-15)
PROC: 30233N1 Transfusion of Nonautologous Red Blood Cells into Peripheral Vein, Percutaneous Approach (ICD-10-PCS; 2019-12-17)
DX: T86.11 Kidney transplant rejection (principal); I26.99 Other pulmonary embolism without acute cor pulmonale; B37.0 Candidal stomatitis; D61.818 Other pancytopenia; N17.9 Acute kidney failure, unspecified; D62 Acute posthemorrhagic anemia; I12.0 Hypertensive chronic kidney disease with stage 5 chronic kidney disease or end stage renal disease; N39.0 Urinary tract infection, site not specified; Z88.6 Allergy status to analgesic agent; Z88.0 Allergy status to penicillin; Z88.2 Allergy status to sulfonamides; Z88.8 Allergy status to other drugs, medicaments and biological substances; D63.8 Anemia in other chronic diseases classified elsewhere; E11.22 Type 2 diabetes mellitus with diabetic chronic kidney disease; E11.649 Type 2 diabetes mellitus with hypoglycemia without coma; E75.21 Fabry (-Anderson) disease; E87.5 Hyperkalemia; E87.70 Fluid overload, unspecified; E88.81 Metabolic syndrome and other insulin resistance; F41.9 Anxiety disorder, unspecified; Z53.20 Procedure and treatment not carried out because of patient's decision for unspecified reasons; Z79.02 Long term (current) use of antithrombotics/antiplatelets; Z79.52 Long term (current) use of systemic steroids; Z79.899 Other long term (current) drug therapy; Z82.49 Family history of ischemic heart disease and other diseases of the circulatory system; Z86.711 Personal history of pulmonary embolism; R13.10 Dysphagia, unspecified; T38.0X5A Adverse effect of glucocorticoids and synthetic analogues, initial encounter; Z86.718 Personal history of other venous thrombosis and embolism; Z99.2 Dependence on renal dialysis; K21.9 Gastro-esophageal reflux disease without esophagitis; I35.0 Nonrheumatic aortic (valve) stenosis; Y83.0 Surgical operation with transplant of whole organ as the cause of abnormal reaction of the patient, or of later complication, without mention of misadventure at the time of the procedure; Y92.89 Other specified places as the place of occurrence of the external cause
CPT/HCPCS: 36415; 36556; 36558; 50200; 71045; 71275; 74177; 76000; 76770; 76937; 77001; 77012; 78582; 80048; 80053; 80061; 80069; 80197; 81001; 82040; 82306; 82310; 82330; 82436; 82570; 82728; 82962; 83036; 83540; 83550; 83735; 83970; 84100; 84133; 84156; 84300; 84439; 84443; 84484; 84550; 85014; 85018; 85025; 85045; 85379; 85520; 85610; 86480; 86705; 86706; 86850; 86900; 86923; 87086; 87324; 87340; 88300; 88305; 88313; 88342; 88346; 88348; 88350; 90935; 93005; 93308; 93321; 93325; 93970; 96372; 99156; 99157; 99291; C1894; G0378; J0696; J1561; J1644; J1650; J1756; J1940; J2250; J2405; J3010; J7120; J7507; J7518; Q9967; A9540; A9558; C1750; C1751; C9113; C9898; J0360; J1447; J1642; J1815; J2310; J7030; J7512; P9016

== ENCOUNTER → 2020-11-30 | Outpatient (CLI) | payer MEDICARE ==
[~2020-11-30] MED LIST changes: +ALPR0.254 PO; -BUSP7.5T3 PO; +BUSP7.5T5 PO; +INSU100I13 SQ-INSULIN; +LABE100T6 PO; +MYCO180T3 PO; +Neosporin Oint, 15GM TP; +PANT40TA6 PO; -TACR1CAP4 PO; +TACR1CAP5 PO
== END | disposition home or self-care (01) ==
LOC: CFH 10:29
PROVIDERS: ATTEND Internal Medicine Cardiovascular Disease
DX: Z01.810 Encounter for preprocedural cardiovascular examination (principal); I05.1 Rheumatic mitral insufficiency; R06.02 Shortness of breath; I65.29 Occlusion and stenosis of unspecified carotid artery
CPT/HCPCS: 93306